=== PATIENT | female | born 1950 | race African-American/Black ===

== ENCOUNTER 2020-01-14 18:00 | Inpatient (IN) | payer MEDICARE ==
[~2020-01-14 18:00] MED LIST: Iopamidol-370 76% 500 ML 1 ML ONE; Succinylcholine 200 MG/10 ml SYRINGE FS ONE
[2020-01-14] MEDS ORDERED: Magnesium 2 GM/50 ML BAG (IN WATER) ONE (19:29)
[2020-01-14] MEDS ORDERED: Amiodarone 150 MG, Admixture Fee 1 EACH in Dextrose 5% in Water 100 ML IVPB SCH (20:00)
[2020-01-14] MEDS ORDERED: Amiodarone 450 MG, Admixture Fee 1 EACH in Dextrose 5% in Water 250 ML IVPB SCH (20:15)
[2020-01-14 20:44] LABS: Phosphorus 3.1 mg/dL (2.3-4.7)
--- NOTE | 2020-01-14 21:34 | CT ---
CT angiogram chest: 01/14/2020 COMPARISON: Prior chest CT study performed 5 hours prior HISTORY: Covid pneumonia TECHNIQUE: Axial CT imaging at 2.5 mm intervals through the chest with IV contrast using CT angiogram protocol. Coronal and oblique sagittal 3-D reformatted imaging obtained. FINDINGS: There is a nonspecific hypodense subcutaneous lesion within the subcutaneous fat posteriorl y measuring 2.8 cm at the axial level of the mid chest. No axillary, hilar, or mediastinal lymphadenopathy is seen. There is a mildly distended small sliding-type hiatal hernia. Imaged upper a bdomen demonstrates no acute findings. No pleural, pericardial, or mediastinal fluid. No evidence for pulmonary arterial embolism. The distal pulmonary arterial branches are not optimally assessed se condary to motion artifact, especially within the bilateral lower lobes. There is extensive groundglass opacity within bilateral upper lobes, the right middle lobe, and bilat eral lower lobes, consistent with the provided history of Covid pneumonia. The distribution of the bilateral parenchymal infiltrates is similar but the severity of the groundglass opacity/airspace dis ease has worsened. There may be slight interval worsening in the extent of disease within the left upper lobe. Review of the osseous structures demonstrates no worrisome lytic or blastic bone lesion. IMPRESSION: Severe extensive bilateral groundglass opacity/airspace disease, consistent with extensiv e bilateral Covid pneumonia. Parenchymal opacities appear to have worsened since the prior study. No convincing evidence for acute pulmonary arterial embolism.
[2020-01-14] MEDS ORDERED: HYDROcodone/Acetaminophen 5/325 mg Tablet PO PRN (21:47)
[2020-01-14] MEDS ORDERED: Acetaminophen 325 MG TAB PO PRN (21:47)
[2020-01-14] MEDS ORDERED: Ondansetron PF 4 MG/2 ML Vial IVP PRN (21:47)
[2020-01-14] MEDS ORDERED: Ondansetron ODT 4 MG TAB PO PRN (21:47)
[2020-01-14] MEDS ORDERED: Acetaminophen 650 MG Suppository PR PRN (21:47)
[2020-01-14] MEDS ORDERED: Calcium Carbonate 500 MG ChewTAB PO PRN (21:47)
--- NOTE | 2020-01-14 21:58 | PDOC.HHP ---
Hospitalist HPI - History of Present Illness sob History of Present Illness: Case of an 69y/o female with pmhx of hyperthryroidism s/p thyroidectomy and htn who comes transfer from [facility] due to covid 19. patient refers she was on her usual state of health until 1 week ago when she stared with cough and dyspnea. symptoms kept progressing until today which she decided to come to hospital for evaluation due to worsesning sob. Her just tested positive for coronavirus. she denies any fever chills diarrhea abd pain change in sense of smell or taste. at ed she was found to be hypoxic in the low 80s and during her evaluation patient started to have episodes of v tach on telemetry. patient denies any chest pain palpitations or diaphoresis. Hospitalist ROS - Review of Systems All other systems reviewed; all pertinent +/- noted in HPI/Subj Hospitalist History - Past Surgical History Past Surgical History: reports: no pertinent history - Family History Family History: reports: no pertinent history - Social History Smoking Status: Never smoker Alcohol: reports: None Drugs: reports: none - Exam General Appearance: ill appearing Eye: PERRL, anicteric sclera ENT: normocephalic atraumatic, no oropharyngeal lesions, moist mucosa Neck: supple, symmetric, no JVD Heart: no murmur, no gallops, no rubs Heart - other findings: tachycardic Respiratory: no wheezes, no rales, rhonchi, tachypneic Gastrointestinal: soft, non-tender, non-distended, normal bowel sounds Extremities: no cyanosis, no clubbing, no edema Skin: normal turgor, no lesions, no rashes Neurological: cranial nerve grossly intact, normal sensation to touch, no weakness Musculoskeletal: normal tone, normal strength, no muscle wasting Psychiatric: normal affect, normal behavior, A&O x 3 Hospitalist Results - Labs Lab results: Troponin I 0.010 ng/mL (< 0.028) 01/14/20 19:04 C-Reactive Protein 14.97 mg/dL (= or < 0.5) H 01/14/20 19:04 Hospitalist H&P A/P - Problem (1) Respiratory failure Code(s): J96.90 - RESPIRATORY FAILURE, UNSP, UNSP W HYPOXIA OR HYPERCAPNIA Status: Acute (2) Pneumonia due to COVID-19 virus Code(s): U07.1 - COVID-19; J12.89 - OTHER VIRAL PNEUMONIA Status: Acute (3) V tach Code(s): I47.2 - VENTRICULAR TACHYCARDIA Status: Acute (4) Respiratory failure with hypoxia Code(s): J96.91 - RESPIRATORY FAILURE, UNSPECIFIED WITH HYPOXIA Status: Acute (5) Hyperthyroidism Code(s): E05.90 - THYROTOXICOSIS, UNSP WITHOUT THYROTOXIC CRISIS OR STORM Status: Acute (6) HTN (hypertension) Code(s): I10 - ESSENTIAL (PRIMARY) HYPERTENSION Status: Acute (7) Morbidly obese Code(s): E66.01 - MORBID (SEVERE) OBESITY DUE TO EXCESS CALORIES Status: Acute - Plan Plan: Case of an 69y/o female with the stated pmhx who presents to hospital due to covid 19 pneumonia w repiratory failure, started having vtach runs at ED covid 19 pneumonia w hypoxia - cxr + chest ct consistent with covid 19 - started prophylactically on rocephin + azythromycin - decadron ivd - inflammation markers done, repeat q 48hrs if needed - id consulted - o2 supplementation - isolation protocol v tach runs - noted on telemetry at the ED - given amiodarone bolus + drip - cardiology consult - 2d echo htn - on amiodarone drip, holding home meds hyperthyroidism - s/p thryroidectomy - continue thryxine - tsh t3 t4
[2020-01-14] MEDS ORDERED: cefTRIAXone\\ROCEPHIN 1 GM in Sodium Chloride 0.9% 100 ML IVPB SCH (22:30)
[2020-01-14] MEDS ORDERED: Azithromycin 500 MG in Sodium Chloride 0.9% 250 ML 250 ML IVPB SCH (23:00)
[2020-01-14 23:37] VITALS: BMI 41.3
[2020-01-15] MEDS: Guaifenesin DM 100-10/5 ML UDCUP PO PRN ×3 (00:26→12:32)
[2020-01-15] MEDS ORDERED: Levothyroxine Sodium 125 MCG TAB PO SCH (06:00)
[2020-01-15 06:14] LABS: Band 5 % (5-11); Hemoglobin 12.3 g/dL (12.0-16.0); Lymphocytes 9 % (21-51); MDiff Complete? YES; Mean Corpuscular HGB CONC 32.3 g/dL (32.0-36.0); Mean Corpuscular Hemoglobin 31.8 pg (27.0-31.0); Mean Corpuscular Volume 98.4 fL (78.0-98.0); Mean Platelet Volume 7.8 fL (7.4-10.4); Monocytes 6 % (0-10); Neutrophil 80 % (42-75); Platelet Count 265 thou/uL (130-400); Red Blood Cell (RBC) Count 3.89 mill/uL (4.20-5.40); White Blood Cell (WBC) Count 11.3 thou/uL (4.8-10.8)
[2020-01-15 06:15] LABS: ALT (SGPT) 29 U/L (8-55); AST (SGOT) 36 U/L (5-34); Albumin 3.2 g/dL (3.4-4.8); Alkaline Phosphatase 72 U/L (40-110); Anion Gap 14 mmol/L (10-20); BUN (Urea Nitrogen) 24 mg/dL (9.8-20.1); Bilirubin, Total 0.2 mg/dL (0.2-1.2); Calc. Creatinine Clearance 113 mL/min (70-130); Calcium 8.1 mg/dL (7.8-10.44); Carbon Dioxide 23 mmol/L (23-31); Chloride 107 mmol/L (98-107); Globulin 3.8 g/dL (2.4-3.5); Glucose 127 mg/dL (80-115); Magnesium 2.5 mg/dL (1.6-2.6); Potassium 4.2 mmol/L (3.5-5.1); Sodium 140 mmol/L (136-145)
[2020-01-15] MEDS ORDERED: hydrALAZINE 20 MG/ML VIAL SLOW IVP SCH (06:30)
[2020-01-15 06:34] LABS: Thyroid Stimulating Hormone 0.1744 uIU/mL (0.35-4.94)
[2020-01-15 06:50] LABS: Free T4 (Free Thyroxine) 1.1 ng/dL (0.70-1.48)
[2020-01-15] MEDS: Dexamethasone 4 mg/ml Vial SLOW IVP SCH (08:29)
[2020-01-15] MEDS: Enoxaparin Sodium 40 MG/0.4 ML SYRINGE SC SCH (08:31)
--- NOTE | 2020-01-15 19:22 | CON ---
DATE OF CONSULTATION: HISTORY OF PRESENT ILLNESS: Dennis Lim is a 69-year-old female, who went to [facility] yesterday with cough and shortness of breath. Her had been tested positive for COVID. She denies any fever, chills, or diarrhea. She was hypoxic with O2 saturations in the 80s. She has 2 rhythm strips that are incorrectly diagnosis of ventricular tachycardia, these are basically artifact with normal QRS seen throughout the rhythm strip. She was placed on amiodarone and transferred here. She now states her breathing has improved. She denies any chest pain or previous cardiac problems. PAST MEDICAL HISTORY: Hypothyroidism and hypertension. ALLERGIES: CODEINE. MEDICATIONS: 1. Verapamil 180 daily. 2. Levothyroxine 125 daily. SOCIAL HISTORY: She does not smoke or drink. PHYSICAL EXAMINATION: VITAL SIGNS: Blood pressure 161/84 and pulse of 86, sinus rhythm on the monitor. Physical exam is deferred due to COVID-19. LABORATORY DATA: EKG reveals sinus tachycardia, otherwise normal. Hemoglobin 12.3, hematocrit 38.2, white count 11,300, and platelets 265,000. Sodium 140, potassium 4.2, chloride 107, carbon dioxide 23, BUN 24, and creatinine 0.86. Troponin I is normal x2. IMPRESSION: 1. COVID-19. 2. Hypertension. 3. Hypothyroidism. 4. Artifact on the monitor, this was not ventricular tachycardia. RECOMMENDATIONS: Amiodarone will be discontinued. I will follow her rhythm from a distance. Please call if further problems. Job ID: [id number]
--- NOTE | 2020-01-15 19:38 | PDOC.HOSPP ---
- Subjective Encounter Date: 01/15/20 Encounter Time: 19:36 Subjective: Patient up in bed states that she feels a little better. - Objective Vital Signs & Weight: Vital Signs (12 hours) Temp Pulse Resp BP Pulse Ox 01/15/20 16:02 98.8 F 86 25 H 160/88 H 96 01/15/20 11:32 98.8 F 86 25 H 161/84 H 93 L 01/15/20 11:20 94 L 01/15/20 10:50 161/84 H 01/15/20 07:54 93 L 01/15/20 07:46 99.0 F 86 24 H 186/105 H 93 L Weight Weight 248 lb 9.6 oz I&O: 01/14/20 01/15/20 01/16/20 06:59 06:59 06:59 Intake Total 326 Balance 326 Result Diagrams: 01/15/20 05:31 01/15/20 05:31 Hospitalist ROS - Review of Systems Cardiovascular: denies: chest pain, palpitations, orthopnea, paroxysmal noc. dyspnea, edema, light headedness, other Gastrointestinal: denies: nausea, vomiting, abdominal pain, diarrhea, constipation, melena, hematochezia, other Genitourinary: denies: dysuria, frequency, incontinence, hematuria, retention, other - Medication Medications: Active Medications Generic Name Dose Route Start Last Admin Trade Name Freq PRN Reason Stop Dose Admin Dexamethasone 6 mg 01/15/20 09:00 01/15/20 08:29 Dexamethasone 4 Mg/Ml Vial SLOW IVP 6 mg DAILY JIM Administration Enoxaparin Sodium 40 mg 01/15/20 09:00 01/15/20 08:31 Enoxaparin Sodium 40 Mg/0.4 Ml Syringe SC 40 mg 0900 JIM Administration Guaifenesin/Dextromethorphan 15 ml 01/14/20 21:47 01/15/20 12:32 Guaifenesin Dm 100-10/5 Ml Udcup PO 15 ml Q4H PRN Administration Cough Ceftriaxone Sodium 1 gm/ 100 mls @ 200 mls/hr 01/14/20 22:30 01/15/20 00:14 Sodium Chloride IVPB 100 mls Q24HR JIM Administration Azithromycin 500 mg/ Sodium 250 mls @ 250 mls/hr 01/14/20 23:00 01/15/20 00: 14 Chloride IVPB 250 mls Q24HR JIM Administration - Exam Neck: negative: supple, symmetric, no JVD, no thyromegaly, no lymphadenopathy, no carotid bruit, JVD Heart: negative: RRR, no murmur, no gallops, no rubs, normal peripheral pulses, irregular, diminshed peripheral pulses, murmur present, II/IV, III/IV Respiratory: negative: CTAB, no wheezes, no rales, no ronchi, normal chest expansion, no tachypnea, normal percussion, rales, rhonchi, tachypneic, wheezes Gastrointestinal: negative: soft, non-tender, non-distended, normal bowel sounds, no palpable masses, no hepatomegaly, no splenomegaly, no bruit, no guarding, no rigidity, tender to palpation, distended, diminished bowl sounds, voluntary guarding Hosp A/P (1) HTN (hypertension) Code(s): I10 - ESSENTIAL (PRIMARY) HYPERTENSION Status: Acute (2) Hyperthyroidism Code(s): E05.90 - THYROTOXICOSIS, UNSP WITHOUT THYROTOXIC CRISIS OR STORM Status: Acute (3) Morbidly obese Code(s): E66.01 - MORBID (SEVERE) OBESITY DUE TO EXCESS CALORIES Status: Acute (4) Pneumonia due to COVID-19 virus Code(s): U07.1 - COVID-19; J12.89 - OTHER VIRAL PNEUMONIA Status: Acute (5) Respiratory failure with hypoxia Code(s): J96.91 - RESPIRATORY FAILURE, UNSPECIFIED WITH HYPOXIA Status: Acute (6) V tach Code(s): I47.2 - VENTRICULAR TACHYCARDIA Status: Acute - Plan Patient started on remdesivir today. Infectious disease consulted. We will continue to monitor patient. Pending cardiology consultation. We will continue IV steroids. Patient on DVT prophylaxis.
[2020-01-16] MEDS ORDERED: hydrALAZINE 20 MG/ML VIAL SLOW IVP SCH (01:30)
--- NOTE | 2020-01-16 03:12 | CON ---
DATE OF CONSULTATION: 01/15/2020 REASON FOR CONSULTATION: COVID infection. HISTORY OF PRESENT ILLNESS: A 69-year-old, history of hyperthyroidism, managed with thyroidectomy who about a week before developed cough and dyspnea which progressed. Her was sick with coronavirus as well. No headaches. No visual symptoms, sore throat, odynophagia, or dysphagia. No vomiting. Some anosmia and anorexia. No fever. No abdominal pain or diarrhea. On arrival, her O2 saturations were 80%. She is tachycardic and had chest pain. Initial findings included BP 170/100, pulse 90, respirations 22, temperature 98.7, and O2 saturation 99 on 3 L. The exam showed tachypnea, she was oriented, diminished breath sounds bilaterally with dry cough. Initial findings included a white cell count of 11.3, hemoglobin 12, platelets 265 with 80% neutrophils. Sodium 140, creatinine 0.6. Ferritin 1900, CRP 14, albumin 3.2. CT chest angio with extensive bilateral ground-glass opacity, worsened since prior study. Patient has been given azithromycin, ceftriaxone, and Decadron. She is now on high-flow nasal cannula O2 supplementation. The flow rate is indicated at 15, but that must not be correct, I think it is probably 50. She appears a little bit apprehensive. Denies any headaches. Moderate shortness of breath. No back pain. No genitourinary symptoms. No diarrhea. No abdominal pain. No neurological symptoms. MEDICAL HISTORY: Hyperthyroidism, thyroidectomy. FAMILY HISTORY: Not pertinent. PERTINENT SOCIAL HISTORY: Never smoker. CURRENT MEDICATIONS: 1. Azithromycin. 2. Ceftriaxone. 3. Decadron. 4. Lovenox. 5. Levothyroxine. 6. Ondansetron. 7. Pantoprazole. 8. Remdesivir had been started. PHYSICAL EXAMINATION: VITAL SIGNS: T-max 98 to 99, blood pressure 150/80, heart rate 89, respiratory rate 16 to 24, and O2 saturation 97. SKIN: Normal. Peripheral IV access. She is voiding in the bedside commode. LYMPHATICS: No lymphadenopathy. HEENT: Ocular movements conjugate. Oral cavity normal. LUNGS: Basilar crackles, right and left side. No wheezing. CARDIAC: S1, S2. Regular rate. No S3 or S4. ABDOMEN: Soft. Not distended or tender. No ascites. No bladder distention. EXTREMITIES: No edema. No joint inflammatory activity. Moves all extremities equally. LABORATORIES: Have been reviewed. Followup creatinine 0.86. Ferritin 1900. CRP 14.7. ASSESSMENT: 1. History of hyperthyroidism status post thyroidectomy. 2. COVID. 3. She also has obesity obviously on physical exam. 4. She has severe COVID pneumonia, on high-flow nasal cannula O2, so she is at seven days of illness, I will go ahead and add remdesivir to her regimen. Continue Decadron. DC Rocephin, azithromycin. Lovenox prophylaxis. Monitor inflammatory markers daily. Job ID: [id number]
[2020-01-16] MEDS: Levothyroxine Sodium 125 MCG TAB PO SCH (05:09)
[2020-01-16 06:06] LABS: ALT (SGPT) 33 U/L (8-55); AST (SGOT) 38 U/L (5-34); Albumin 3.3 g/dL (3.4-4.8); Alkaline Phosphatase 82 U/L (40-110); Anion Gap 14 mmol/L (10-20); BUN (Urea Nitrogen) 30 mg/dL (9.8-20.1); Bilirubin, Direct 0.2 mg/dL (0.1-0.3); Bilirubin, Total 0.3 mg/dL (0.2-1.2); CRP (Inflammatory) 7.67 mg/dL (= or < 0.5); Calc. Creatinine Clearance 110 mL/min (70-130); Calcium 8.3 mg/dL (7.8-10.44); Carbon Dioxide 25 mmol/L (23-31); Chloride 106 mmol/L (98-107); Glucose 101 mg/dL (80-115); Potassium 4.1 mmol/L (3.5-5.1); Protein, Total 7.3 g/dL (6.0-8.3); Sodium 141 mmol/L (136-145)
[2020-01-16] MEDS: Enoxaparin Sodium 40 MG/0.4 ML SYRINGE SC SCH (08:46)
[2020-01-16] MEDS: Dexamethasone 4 mg/ml Vial SLOW IVP SCH (08:47)
[2020-01-16] MEDS: Guaifenesin DM 100-10/5 ML UDCUP PO PRN (11:49)
--- NOTE | 2020-01-16 14:20 | PDOC.HOSPP ---
- Subjective Encounter Date: 01/16/20 Encounter Time: 07:30 Subjective: Patient seen for follow-up regarding acute hypoxic respiratory failure. Reports shortness of breath with exertion. - Objective Vital Signs & Weight: Vital Signs (12 hours) Temp Pulse Resp BP Pulse Ox 01/16/20 11:09 94 L 01/16/20 11:00 82 L 01/16/20 08:18 86 L 01/16/20 07:59 98.9 F 93 25 H 172/91 H 93 L 01/16/20 04:00 99.0 F 100 18 158/89 H 97 01/16/20 03:23 92 L Weight Weight 248 lb 9.6 oz I&O: 01/15/20 01/16/20 01/17/20 06:59 06:59 06:59 Intake Total 1056 Balance 1056 Result Diagrams: 01/15/20 05:31 01/16/20 05:07 Additional Labs: I reviewed patient's labs and MAR EKG Reviewed by me: Yes (Telemetry shows normal sinus rhythm) Hospitalist ROS - Review of Systems Respiratory: reports: cough, dry, SOB with excertion. denies: shortness of breath, hemoptysis, pleuritic pain, sputum, wheezing Cardiovascular: denies: chest pain, palpitations, orthopnea, paroxysmal noc. dyspnea, edema, light headedness - Medication Medications: Active Medications Generic Name Dose Route Start Last Admin Trade Name Freq PRN Reason Stop Dose Admin Dexamethasone 6 mg 01/15/20 09:00 01/16/20 08:47 Dexamethasone 4 Mg/Ml Vial SLOW IVP 6 mg DAILY JIM Administration Enoxaparin Sodium 40 mg 01/15/20 09:00 01/16/20 08:46 Enoxaparin Sodium 40 Mg/0.4 Ml Syringe SC 40 mg 0900 JIM Administration Guaifenesin/Dextromethorphan 15 ml 01/14/20 21:47 01/16/20 11:49 Guaifenesin Dm 100-10/5 Ml Udcup PO 15 ml Q4H PRN Administration Cough Levothyroxine Sodium 125 mcg 01/16/20 06:00 01/16/20 05:09 Levothyroxine Sodium 125 Mcg Tab PO 125 mcg 0600 JIM Administration Pantoprazole Sodium 40 mg 01/16/20 09:00 01/16/20 08:48 Pantoprazole 40 Mg Tab PO 40 mg DAILY JIM Administration Verapamil HCl 180 mg 01/16/20 09:00 01/16/20 08:48 Verapamil Er 180 Mg Tab PO 180 mg DAILY JIM Administration - Exam General - other findings: Morbid obesity Eye: anicteric sclera ENT: no oropharyngeal lesions Neck: supple Heart: RRR Respiratory: CTAB Gastrointestinal: soft Skin: no rashes Psychiatric: normal affect, normal behavior Hosp A/P - Plan -Assessment (1) Respiratory failure with hypoxia Code(s): J96.91 - RESPIRATORY FAILURE, UNSPECIFIED WITH HYPOXIA Status: Acute (2) Pneumonia due to COVID-19 virus Code(s): U07.1 - COVID-19; J12.89 - OTHER VIRAL PNEUMONIA Status: Acute (3) HTN (hypertension) Code(s): I10 - ESSENTIAL (PRIMARY) HYPERTENSION Status: Chronic (4) hypothyroidism Status: Chronic (5) Morbidly obese Code(s): E66.01 - MORBID (SEVERE) OBESITY DUE TO EXCESS CALORIES Status: Chronic (6) V tach Code(s): I47.2 - VENTRICULAR TACHYCARDIA Status: Ruled out - Plan Patient continues to be on high flow oxygen. She has been started on remdesivir, will continue. Continue dexamethasone. Trend inflammatory markers. Start vitamin C and zinc. Continue Synthroid.
[2020-01-16] MEDS ORDERED: Ascorbic Acid 500 mg Chewable Tablet PO SCH (14:45)
[2020-01-16] MEDS ORDERED: Zinc Sulfate 220 MG CAP PO SCH (15:00)
[2020-01-17] MEDS ORDERED: hydrALAZINE 20 MG/ML VIAL SLOW IVP SCH (03:00)
[2020-01-17] MEDS: Levothyroxine Sodium 125 MCG TAB PO SCH (05:05)
[2020-01-17 05:16] LABS: #Monocytes 1.1 thou/uL (0.11-0.59); #Neutrophils 9.7 thou/uL (1.40-6.50); %Basophils 0.4 % (0.0-1.0); %Eosinophils 0.2 % (0.0-10.0); %Lymphocytes 8.6 % (21.0-51.0); %Monocytes 9.2 % (0.0-10.0); %Neutrophils 81.6 % (42.0-75.0); Hemoglobin 13.1 g/dL (12.0-16.0); Mean Corpuscular HGB CONC 32.4 g/dL (32.0-36.0); Mean Corpuscular Hemoglobin 31.7 pg (27.0-31.0); Mean Corpuscular Volume 98.1 fL (78.0-98.0); Mean Platelet Volume 8.1 fL (7.4-10.4); Platelet Count 244 thou/uL (130-400); RBC Distribution Width 13.2 % (11.5-14.5); Red Blood Cell (RBC) Count 4.13 mill/uL (4.20-5.40); White Blood Cell (WBC) Count 11.9 thou/uL (4.8-10.8)
[2020-01-17 05:45] LABS: ALT (SGPT) 39 U/L (8-55); AST (SGOT) 39 U/L (5-34); Albumin 3.2 g/dL (3.4-4.8); Alkaline Phosphatase 90 U/L (40-110); Anion Gap 16 mmol/L (10-20); BUN (Urea Nitrogen) 33 mg/dL (9.8-20.1); Bilirubin, Direct 0.2 mg/dL (0.1-0.3); Bilirubin, Total 0.4 mg/dL (0.2-1.2); CRP (Inflammatory) 5.23 mg/dL (= or < 0.5); Calc. Creatinine Clearance 130 mL/min (70-130); Calcium 8.3 mg/dL (7.8-10.44); Carbon Dioxide 20 mmol/L (23-31); Chloride 108 mmol/L (98-107); Glucose 105 mg/dL (80-115); Potassium 4.1 mmol/L (3.5-5.1); Sodium 140 mmol/L (136-145)
[2020-01-17] MEDS: Zinc Sulfate 220 MG CAP PO SCH (09:39)
[2020-01-17] MEDS: Ascorbic Acid 500 mg Chewable Tablet PO SCH (09:39)
[2020-01-17] MEDS: Enoxaparin Sodium 40 MG/0.4 ML SYRINGE SC SCH (09:39)
[2020-01-17] MEDS: Dexamethasone 4 mg/ml Vial SLOW IVP SCH (09:40)
[2020-01-17] MEDS ORDERED: Amlodipine 5 MG TAB PO SCH (11:45)
--- NOTE | 2020-01-17 16:30 | PDOC.HOSPP ---
- Subjective Encounter Date: 01/17/20 Encounter Time: 15:30 Subjective: Patient seen for follow-up regarding acute hypoxic respiratory failure. Shortness of breath after she had showered. - Objective Vital Signs & Weight: Vital Signs (12 hours) Temp Pulse Resp BP Pulse Ox 01/17/20 15:34 98.8 F 98 22 H 158/81 H 93 L 01/17/20 11:23 97.9 F 100 22 H 159/87 H 95 01/17/20 10:35 93 L 01/17/20 07:47 99.1 F 100 22 H 182/89 H 93 L Weight Weight 248 lb 9.6 oz I&O: 01/16/20 01/17/20 01/18/20 06:59 06:59 06:59 Intake Total 1056 832 Balance 1056 832 Result Diagrams: 01/17/20 04:41 01/17/20 04:41 Additional Labs: I reviewed patient's labs and MAR EKG Reviewed by me: Yes (Normal sinus rhythm on telemetry) Hospitalist ROS - Review of Systems Respiratory: reports: cough, shortness of breath, SOB with excertion Cardiovascular: denies: chest pain, palpitations, orthopnea, paroxysmal noc. dyspnea, edema, light headedness Gastrointestinal: denies: nausea, vomiting, abdominal pain, diarrhea, constipation, melena, hematochezia - Medication Medications: Active Medications Generic Name Dose Route Start Last Admin Trade Name Freq PRN Reason Stop Dose Admin Ascorbic Acid 1,000 mg 01/17/20 09:00 01/17/20 09:39 Ascorbic Acid 500 Mg Chewable Tablet PO 1,000 mg DAILY JIM Administration Dexamethasone 6 mg 01/15/20 09:00 01/17/20 09:40 Dexamethasone 4 Mg/Ml Vial SLOW IVP 6 mg DAILY JIM Administration Enoxaparin Sodium 40 mg 01/15/20 09:00 01/17/20 09:39 Enoxaparin Sodium 40 Mg/0.4 Ml Syringe SC 40 mg 0900 JIM Administration Guaifenesin/Dextromethorphan 15 ml 01/14/20 21:47 01/16/20 11:49 Guaifenesin Dm 100-10/5 Ml Udcup PO 15 ml Q4H PRN Administration Cough Remdesivir 100 mg/ Sodium 250 mls @ 250 mls/hr 01/16/20 21:00 01/16/20 20:10 Chloride IV 01/19/20 21:59 250 mls Q24HR JIM Administration Levothyroxine Sodium 125 mcg 01/16/20 06:00 01/17/20 05:05 Levothyroxine Sodium 125 Mcg Tab PO 125 mcg 0600 JIM Administration Pantoprazole Sodium 40 mg 01/16/20 09:00 01/17/20 09:39 Pantoprazole 40 Mg Tab PO 40 mg DAILY JIM Administration Verapamil HCl 180 mg 01/16/20 09:00 01/17/20 09:38 Verapamil Er 180 Mg Tab PO 180 mg DAILY JIM Administration Zinc Sulfate 220 mg 01/17/20 09:00 01/17/20 09:39 Zinc Sulfate 220 Mg Cap PO 220 mg DAILY JIM Administration - Exam General Appearance: awake alert Eye: anicteric sclera ENT: moist mucosa Neck: supple Heart: RRR Respiratory: CTAB Gastrointestinal: soft, non-tender Skin: no rashes Psychiatric: normal affect, normal behavior Hosp A/P - Plan -Assessment (1) Respiratory failure with hypoxia Code(s): J96.91 - RESPIRATORY FAILURE, UNSPECIFIED WITH HYPOXIA Status: Acute (2) Pneumonia due to COVID-19 virus Code(s): U07.1 - COVID-19; J12.89 - OTHER VIRAL PNEUMONIA Status: Acute (3) HTN (hypertension) Code(s): I10 - ESSENTIAL (PRIMARY) HYPERTENSION Status: Chronic (4) hypothyroidism Status: Chronic (5) Morbidly obese Code(s): E66.01 - MORBID (SEVERE) OBESITY DUE TO EXCESS CALORIES Status: Chronic (6) V tach Code(s): I47.2 - VENTRICULAR TACHYCARDIA Status: Ruled out - Plan Patient continues to be on high flow oxygen. Continue remdesivir and dexamethasone. Trend inflammatory markers. continue vitamin C and zinc. Continue Synthroid. Patient was accepted for admission to [facility] in [place] but but she subsequently decided not to go. Patient son updated over telephone.
[2020-01-18] MEDS ORDERED: hydrALAZINE 20 MG/ML VIAL SLOW IVP SCH (01:30)
[2020-01-18] MEDS: Levothyroxine Sodium 125 MCG TAB PO SCH (05:14)
[2020-01-18 05:35] LABS: #Monocytes 0.9 thou/uL (0.11-0.59); #Neutrophils 10.4 thou/uL (1.40-6.50); %Basophils 0.1 % (0.0-1.0); %Lymphocytes 8.4 % (21.0-51.0); %Monocytes 7.5 % (0.0-10.0); Hemoglobin 12.7 g/dL (12.0-16.0); Mean Corpuscular HGB CONC 33.3 g/dL (32.0-36.0); Mean Corpuscular Hemoglobin 32.3 pg (27.0-31.0); Mean Corpuscular Volume 97.1 fL (78.0-98.0); Platelet Count 187 thou/uL (130-400); RBC Distribution Width 13.3 % (11.5-14.5); Red Blood Cell (RBC) Count 3.94 mill/uL (4.20-5.40); White Blood Cell (WBC) Count 12.3 thou/uL (4.8-10.8)
[2020-01-18 07:20] LABS: Anion Gap 13 mmol/L (10-20); BUN (Urea Nitrogen) 25 mg/dL (9.8-20.1); Calc. Creatinine Clearance 135 mL/min (70-130); Calcium 8.1 mg/dL (7.8-10.44); Carbon Dioxide 25 mmol/L (23-31); Chloride 108 mmol/L (98-107); Glucose 105 mg/dL (80-115); Magnesium 2.3 mg/dL (1.6-2.6); Potassium 4.1 mmol/L (3.5-5.1); Sodium 142 mmol/L (136-145)
[2020-01-18 08:39] LABS: ALT (SGPT) 51 U/L (8-55); AST (SGOT) 37 U/L (5-34); Albumin 3.1 g/dL (3.4-4.8); Alkaline Phosphatase 94 U/L (40-110); Bilirubin, Direct 0.2 mg/dL (0.1-0.3); Bilirubin, Total 0.5 mg/dL (0.2-1.2); CRP (Inflammatory) 7.27 mg/dL (= or < 0.5); Protein, Total 6.6 g/dL (6.0-8.3)
[2020-01-18] MEDS: Amlodipine 5 MG TAB PO SCH (09:06)
[2020-01-18] MEDS: Ascorbic Acid 500 mg Chewable Tablet PO SCH (09:07)
[2020-01-18] MEDS: Dexamethasone 4 mg/ml Vial SLOW IVP SCH (09:07)
[2020-01-18] MEDS: Enoxaparin Sodium 40 MG/0.4 ML SYRINGE SC SCH (09:07)
[2020-01-18] MEDS: Zinc Sulfate 220 MG CAP PO SCH (09:07)
--- NOTE | 2020-01-18 15:52 | PDOC.HOSPP ---
- Subjective Encounter Date: 01/18/20 Encounter Time: 07:30 Subjective: Patient seen for follow-up regarding COVID-19 pneumonia. She reports feeling better today. She refused convalescent plasma yesterday. She reports that her breathing is fine as long as she is lying still. - Objective Vital Signs & Weight: Vital Signs (12 hours) Temp Pulse Resp BP Pulse Ox 01/18/20 12:00 98.8 F 100 22 H 143/85 H 93 L 01/18/20 09:07 94 L 01/18/20 07:53 97.2 F L 95 22 H 169/87 H 94 L 01/18/20 04:30 98.2 F 93 14 94 L Weight Weight 248 lb 9.6 oz I&O: 01/17/20 01/18/20 01/19/20 06:59 06:59 06:59 Intake Total 832 536 Output Total 649 Balance 832 -113 Result Diagrams: 01/18/20 05:11 01/18/20 06:49 Additional Labs: Labs and MAR reviewed by me EKG Reviewed by me: Yes (Telemetry shows normal sinus rhythm) Hospitalist ROS - Medication Medications: Active Medications Generic Name Dose Route Start Last Admin Trade Name Freq PRN Reason Stop Dose Admin Amlodipine Besylate 5 mg 01/18/20 09:00 01/18/20 09:06 Amlodipine 5 Mg Tab PO 5 mg DAILY JIM Administration Ascorbic Acid 1,000 mg 01/17/20 09:00 01/18/20 09:07 Ascorbic Acid 500 Mg Chewable Tablet PO 1,000 mg DAILY JIM Administration Dexamethasone 6 mg 01/15/20 09:00 01/18/20 09:07 Dexamethasone 4 Mg/Ml Vial SLOW IVP 6 mg DAILY JIM Administration Enoxaparin Sodium 40 mg 01/15/20 09:00 01/18/20 09:07 Enoxaparin Sodium 40 Mg/0.4 Ml Syringe SC 40 mg 0900 JIM Administration Guaifenesin/Dextromethorphan 15 ml 01/14/20 21:47 01/16/20 11:49 Guaifenesin Dm 100-10/5 Ml Udcup PO 15 ml Q4H PRN Administration Cough Remdesivir 100 mg/ Sodium 250 mls @ 250 mls/hr 01/16/20 21:00 01/17/20 20:50 Chloride IV 01/19/20 21:59 250 mls Q24HR JIM Administration Levothyroxine Sodium 125 mcg 01/16/20 06:00 01/18/20 05:14 Levothyroxine Sodium 125 Mcg Tab PO 125 mcg 0600 JIM Administration Pantoprazole Sodium 40 mg 01/16/20 09:00 01/18/20 09:06 Pantoprazole 40 Mg Tab PO 40 mg DAILY JIM Administration Verapamil HCl 180 mg 01/16/20 09:00 01/18/20 09:06 Verapamil Er 180 Mg Tab PO 180 mg DAILY JIM Administration Zinc Sulfate 220 mg 01/17/20 09:00 01/18/20 09:07 Zinc Sulfate 220 Mg Cap PO 220 mg DAILY JIM Administration Hosp A/P - Plan -Assessment (1) Respiratory failure with hypoxia Code(s): J96.91 - RESPIRATORY FAILURE, UNSPECIFIED WITH HYPOXIA Status: Acute (2) Pneumonia due to COVID-19 virus Code(s): U07.1 - COVID-19; J12.89 - OTHER VIRAL PNEUMONIA Status: Acute (3) HTN (hypertension) Code(s): I10 - ESSENTIAL (PRIMARY) HYPERTENSION Status: Chronic (4) hypothyroidism Status: Chronic (5) Morbidly obese Code(s): E66.01 - MORBID (SEVERE) OBESITY DUE TO EXCESS CALORIES Status: Chronic (6) V tach Code(s): I47.2 - VENTRICULAR TACHYCARDIA Status: Ruled out - Plan Continue dexamethasone. Continue remdesivir. Continue vitamin C. Continue zinc. DVT prophylaxis with low molecular weight heparin.
[2020-01-19] MEDS: Guaifenesin DM 100-10/5 ML UDCUP PO PRN (01:53)
[2020-01-19] MEDS: Levothyroxine Sodium 125 MCG TAB PO SCH (05:05)
[2020-01-19 05:55] LABS: #Neutrophils 14.1 thou/uL (1.40-6.50); %Eosinophils 0.1 % (0.0-10.0); %Lymphocytes 6.4 % (21.0-51.0); %Monocytes 6.1 % (0.0-10.0); %Neutrophils 87.4 % (42.0-75.0); Hemoglobin 12.7 g/dL (12.0-16.0); Mean Corpuscular Hemoglobin 31.8 pg (27.0-31.0); Mean Corpuscular Volume 99.4 fL (78.0-98.0); Mean Platelet Volume 8.3 fL (7.4-10.4); Platelet Count 180 thou/uL (130-400); RBC Distribution Width 13.4 % (11.5-14.5); Red Blood Cell (RBC) Count 3.97 mill/uL (4.20-5.40); White Blood Cell (WBC) Count 16.1 thou/uL (4.8-10.8)
[2020-01-19 06:19] LABS: ALT (SGPT) 71 U/L (8-55); AST (SGOT) 41 U/L (5-34); Albumin 2.9 g/dL (3.4-4.8); Alkaline Phosphatase 98 U/L (40-110); Anion Gap 14 mmol/L (10-20); BUN (Urea Nitrogen) 26 mg/dL (9.8-20.1); Bilirubin, Direct 0.2 mg/dL (0.1-0.3); Bilirubin, Total 0.4 mg/dL (0.2-1.2); CRP (Inflammatory) 6.25 mg/dL (= or < 0.5); Calc. Creatinine Clearance 145 mL/min (70-130); Carbon Dioxide 22 mmol/L (23-31); Chloride 108 mmol/L (98-107); Glucose 112 mg/dL (80-115); Potassium 3.9 mmol/L (3.5-5.1); Protein, Total 6.3 g/dL (6.0-8.3); Sodium 140 mmol/L (136-145)
[2020-01-19] MEDS: Ascorbic Acid 500 mg Chewable Tablet PO SCH (09:22)
[2020-01-19] MEDS: Zinc Sulfate 220 MG CAP PO SCH (09:22)
[2020-01-19] MEDS: Amlodipine 5 MG TAB PO SCH (09:22)
[2020-01-19] MEDS: Dexamethasone 4 mg/ml Vial SLOW IVP SCH (09:23)
[2020-01-19] MEDS: Enoxaparin Sodium 40 MG/0.4 ML SYRINGE SC SCH (09:23)
--- NOTE | 2020-01-19 15:39 | PDOC.HOSPP ---
- Subjective Encounter Date: 01/19/20 Encounter Time: 07:30 Subjective: Patient seen for follow-up for COVID-19 pneumonia. States that she feels the same as yesterday. - Objective Vital Signs & Weight: Vital Signs (12 hours) Temp Pulse Resp BP Pulse Ox 01/19/20 15:27 98.8 F 101 H 25 H 133/77 97 01/19/20 12:00 98.7 F 99 18 149/80 H 95 01/19/20 09:22 95 01/19/20 08:00 98.5 F 101 H 24 H 158/87 H 92 L 01/19/20 06:50 92 L 01/19/20 04:35 98.3 F 95 22 H 166/86 H 95 Weight Weight 248 lb 9.6 oz I&O: 01/18/20 01/19/20 01/20/20 06:59 06:59 06:59 Intake Total 536 796 Output Total 649 400 Balance -113 396 Result Diagrams: 01/19/20 05:35 01/19/20 05:35 Additional Labs: I reviewed patient's labs and MAR Hospitalist ROS - Review of Systems Constitutional: denies: fever, chills, sweats, weakness Respiratory: reports: SOB with excertion. denies: cough, dry, shortness of breath, hemoptysis, pleuritic pain, sputum, wheezing Skin: denies: rash, lesions, caterina - Medication Medications: Active Medications Generic Name Dose Route Start Last Admin Trade Name Freq PRN Reason Stop Dose Admin Amlodipine Besylate 5 mg 01/18/20 09:00 01/19/20 09:22 Amlodipine 5 Mg Tab PO 5 mg DAILY JIM Administration Ascorbic Acid 1,000 mg 01/17/20 09:00 01/19/20 09:22 Ascorbic Acid 500 Mg Chewable Tablet PO 1,000 mg DAILY JIM Administration Dexamethasone 6 mg 01/15/20 09:00 01/19/20 09:23 Dexamethasone 4 Mg/Ml Vial SLOW IVP 6 mg DAILY JIM Administration Enoxaparin Sodium 40 mg 01/15/20 09:00 01/19/20 09:23 Enoxaparin Sodium 40 Mg/0.4 Ml Syringe SC 40 mg 09 JIM Administration Guaifenesin/Dextromethorphan 15 ml 01/14/20 21:47 01/19/20 01:53 Guaifenesin Dm 100-10/5 Ml Udcup PO 15 ml Q4H PRN Administration Cough Remdesivir 100 mg/ Sodium 250 mls @ 250 mls/hr 01/16/20 21:00 01/18/20 21:03 Chloride IV 01/19/20 21:59 250 mls Q24HR JIM Administration Levothyroxine Sodium 125 mcg 01/16/20 06:00 01/19/20 05:05 Levothyroxine Sodium 125 Mcg Tab PO 125 mcg 0600 JIM Administration Pantoprazole Sodium 40 mg 01/16/20 09:00 01/19/20 09:23 Pantoprazole 40 Mg Tab PO 40 mg DAILY JIM Administration Verapamil HCl 180 mg 01/16/20 09:00 01/19/20 09:25 Verapamil Er 180 Mg Tab PO 180 mg DAILY JIM Administration Zinc Sulfate 220 mg 01/17/20 09:00 01/19/20 09:22 Zinc Sulfate 220 Mg Cap PO 220 mg DAILY JIM Administration - Exam General - other findings: Morbid obesity Eye: anicteric sclera ENT: moist mucosa Heart: RRR Respiratory: CTAB Gastrointestinal: soft, non-tender Skin: no rashes Psychiatric: normal affect, normal behavior Hosp A/P - Plan -Assessment (1) Respiratory failure with hypoxia Code(s): J96.91 - RESPIRATORY FAILURE, UNSPECIFIED WITH HYPOXIA Status: Acute (2) Pneumonia due to COVID-19 virus Code(s): U07.1 - COVID-19; J12.89 - OTHER VIRAL PNEUMONIA Status: Acute (3) HTN (hypertension) Code(s): I10 - ESSENTIAL (PRIMARY) HYPERTENSION Status: Chronic (4) hypothyroidism Status: Chronic (5) Morbidly obese Code(s): E66.01 - MORBID (SEVERE) OBESITY DUE TO EXCESS CALORIES Status: Chronic (6) V tach Code(s): I47.2 - VENTRICULAR TACHYCARDIA Status: Ruled out - Plan Continue dexamethasone. Patient's last dose of remdesivir yesterday. Patient is on vitamin C. Patient is on zinc. Hypertension is controlled. DVT prophylaxis with low molecular weight heparin.
[2020-01-20] MEDS: Guaifenesin DM 100-10/5 ML UDCUP PO PRN (00:27)
[2020-01-20 05:07] LABS: Anion Gap 14 mmol/L (10-20); BUN (Urea Nitrogen) 29 mg/dL (9.8-20.1); Calc. Creatinine Clearance 125 mL/min (70-130); Carbon Dioxide 23 mmol/L (23-31); Chloride 108 mmol/L (98-107); Glucose 111 mg/dL (80-115); Potassium 4.2 mmol/L (3.5-5.1); Sodium 141 mmol/L (136-145)
[2020-01-20 05:14] LABS: ALT (SGPT) 81 U/L (8-55); AST (SGOT) 38 U/L (5-34); Alkaline Phosphatase 97 U/L (40-110); Bilirubin, Direct 0.2 mg/dL (0.1-0.3); Bilirubin, Total 0.4 mg/dL (0.2-1.2); Magnesium 2.2 mg/dL (1.6-2.6); Protein, Total 6.5 g/dL (6.0-8.3)
[2020-01-20] MEDS: Levothyroxine Sodium 125 MCG TAB PO SCH (05:18)
[2020-01-20] MEDS: Ascorbic Acid 500 mg Chewable Tablet PO SCH (09:42)
[2020-01-20] MEDS: Amlodipine 10 MG TAB PO SCH (09:42)
[2020-01-20] MEDS: Dexamethasone 4 mg/ml Vial SLOW IVP SCH (09:43)
[2020-01-20] MEDS: Enoxaparin Sodium 40 MG/0.4 ML SYRINGE SC SCH (09:43)
[2020-01-20] MEDS: Zinc Sulfate 220 MG CAP PO SCH (09:43)
--- NOTE | 2020-01-20 15:30 | PDOC.HOSPP ---
- Subjective Encounter Date: 01/20/20 Encounter Time: 07:30 Subjective: Patient seen for follow-up regarding hypoxic respiratory failure. She reports feeling okay. - Objective Vital Signs & Weight: Vital Signs (12 hours) Temp Pulse Resp BP BP Pulse Ox 01/20/20 11:29 98.6 F 112 H 23 H 150/71 H 93 L 01/20/20 09:42 95 177/94 H 01/20/20 07:50 98.8 F 95 22 H 177/94 H 100 01/20/20 04:30 94 150/93 H 01/20/20 04:00 98.5 F 90 16 180/105 H 97 Weight Weight 248 lb 9.6 oz I&O: 01/19/20 01/20/20 01/21/20 06:59 06:59 06:59 Intake Total 796 400 Output Total 400 650 Balance 396 -250 Result Diagrams: 01/19/20 05:35 01/20/20 04:30 Additional Labs: Labs and MAR reviewed by me EKG Reviewed by me: Yes (Telemetry shows normal sinus rhythm) Hospitalist ROS - Review of Systems Constitutional: denies: fever, chills, sweats, weakness, malaise Respiratory: reports: SOB with excertion. denies: cough, shortness of breath, pleuritic pain, sputum - Medication Medications: Active Medications Generic Name Dose Route Start Last Admin Trade Name Freq PRN Reason Stop Dose Admin Amlodipine Besylate 10 mg 01/20/20 09:00 01/20/20 09:42 Amlodipine 10 Mg Tab PO 10 mg DAILY JIM Administration Ascorbic Acid 1,000 mg 01/17/20 09:00 01/20/20 09:42 Ascorbic Acid 500 Mg Chewable Tablet PO 1,000 mg DAILY JIM Administration Dexamethasone 6 mg 01/15/20 09:00 01/20/20 09:43 Dexamethasone 4 Mg/Ml Vial SLOW IVP 6 mg DAILY JIM Administration Enoxaparin Sodium 40 mg 01/15/20 09:00 01/20/20 09:43 Enoxaparin Sodium 40 Mg/0.4 Ml Syringe SC 40 mg 0900 JIM Administration Guaifenesin/Dextromethorphan 15 ml 01/14/20 21:47 01/20/20 00:27 Guaifenesin Dm 100-10/5 Ml Udcup PO 15 ml Q4H PRN Administration Cough Levothyroxine Sodium 125 mcg 01/16/20 06:00 01/20/20 05:18 Levothyroxine Sodium 125 Mcg Tab PO 125 mcg 0600 JIM Administration Pantoprazole Sodium 40 mg 01/16/20 09:00 01/20/20 09:42 Pantoprazole 40 Mg Tab PO 40 mg DAILY JIM Administration Verapamil HCl 180 mg 01/16/20 09:00 01/20/20 09:42 Verapamil Er 180 Mg Tab PO 180 mg DAILY JIM Administration Zinc Sulfate 220 mg 01/17/20 09:00 01/20/20 09:43 Zinc Sulfate 220 Mg Cap PO 220 mg DAILY JIM Administration - Exam General - other findings: Morbid obesity ENT: normocephalic atraumatic Heart: RRR Respiratory: CTAB Gastrointestinal: soft Extremities: no clubbing Skin: no rashes Psychiatric: normal affect, normal behavior Hosp A/P - Plan -Assessment (1) Respiratory failure with hypoxia Code(s): J96.91 - RESPIRATORY FAILURE, UNSPECIFIED WITH HYPOXIA Status: Acute (2) Pneumonia due to COVID-19 virus Code(s): U07.1 - COVID-19; J12.89 - OTHER VIRAL PNEUMONIA Status: Acute (3) HTN (hypertension) Code(s): I10 - ESSENTIAL (PRIMARY) HYPERTENSION Status: Chronic (4) hypothyroidism Status: Chronic (5) Morbidly obese Code(s): E66.01 - MORBID (SEVERE) OBESITY DUE TO EXCESS CALORIES Status: Chronic (6) V tach Code(s): I47.2 - VENTRICULAR TACHYCARDIA Status: Ruled out - Plan Patient continues to need high flow oxygen. Patient is on dexamethasone. Patient's completed course of remdesivir. Patient is on vitamin C. Patient is on zinc. Hypertension is controlled. DVT prophylaxis with low molecular weight heparin.
[2020-01-21] MEDS: Levothyroxine Sodium 125 MCG TAB PO SCH (05:11)
[2020-01-21] MEDS: Guaifenesin DM 100-10/5 ML UDCUP PO PRN ×2 (05:26)
[2020-01-21 05:39] LABS: Anion Gap 13 mmol/L (10-20); BUN (Urea Nitrogen) 30 mg/dL (9.8-20.1); Calc. Creatinine Clearance 131 mL/min (70-130); Carbon Dioxide 23 mmol/L (23-31); Chloride 107 mmol/L (98-107); Glucose 107 mg/dL (80-115); Potassium 4.1 mmol/L (3.5-5.1); Sodium 139 mmol/L (136-145)
[2020-01-21 05:41] LABS: ALT (SGPT) 76 U/L (8-55); AST (SGOT) 32 U/L (5-34); Albumin 2.9 g/dL (3.4-4.8); Alkaline Phosphatase 95 U/L (40-110); Bilirubin, Direct 0.2 mg/dL (0.1-0.3); Bilirubin, Total 0.5 mg/dL (0.2-1.2); Protein, Total 6.6 g/dL (6.0-8.3)
[2020-01-21] MEDS: Zinc Sulfate 220 MG CAP PO SCH (09:41)
[2020-01-21] MEDS: Dexamethasone 4 mg/ml Vial SLOW IVP SCH (09:41)
[2020-01-21] MEDS: Ascorbic Acid 500 mg Chewable Tablet PO SCH (09:41)
[2020-01-21] MEDS: Amlodipine 10 MG TAB PO SCH (09:41)
[2020-01-21] MEDS: Enoxaparin Sodium 40 MG/0.4 ML SYRINGE SC SCH (09:41)
[2020-01-21] MEDS ORDERED: Bisacodyl 5 MG TAB PO PRN (12:50)
[2020-01-21] MEDS ORDERED: Bisacodyl 5 MG TAB PO SCH (13:00)
--- NOTE | 2020-01-21 16:35 | PDOC.HOSPP ---
- Subjective Encounter Date: 01/21/20 Encounter Time: 07:00 Subjective: Patient seen for follow-up regarding acute hypoxic respiratory failure secondary to COVID-19 pneumonia. She denies any new complaints. - Objective Vital Signs & Weight: Vital Signs (12 hours) Temp Pulse Resp BP BP Pulse Ox 01/21/20 15:55 98.3 F 96 18 138/79 97 01/21/20 11:49 98.2 F 111 H 20 147/76 H 100 01/21/20 11:10 94 L 01/21/20 09:41 103 H 148/82 H 94 L 01/21/20 07:54 98.3 F 103 H 20 148/82 H 90 L 01/21/20 05:15 98.6 F 108 H 22 H 164/79 H 95 Weight Weight 248 lb 9.6 oz I&O: 01/20/20 01/21/20 01/22/20 06:59 06:59 06:59 Intake Total 400 1660 Output Total 650 1050 Balance -250 610 Result Diagrams: 01/19/20 05:35 01/21/20 04:52 Additional Labs: I reviewed patient's labs and MAR EKG Reviewed by me: Yes (Normal sinus rhythm on telemetry) Hospitalist ROS - Review of Systems Respiratory: reports: SOB with excertion Cardiovascular: denies: chest pain, palpitations, orthopnea, paroxysmal noc. dyspnea, edema, light headedness Gastrointestinal: denies: nausea, vomiting, abdominal pain, diarrhea, constipati on, melena, hematochezia - Medication Medications: Active Medications Generic Name Dose Route Start Last Admin Trade Name Keeq PRN Reason Stop Dose Admin Amlodipine Besylate 10 mg 01/20/20 09:00 01/21/20 09:41 Amlodipine 10 Mg Tab PO 10 mg DAILY JIM Administration Ascorbic Acid 1,000 mg 01/17/20 09:00 01/21/20 09:41 Ascorbic Acid 500 Mg Chewable Tablet PO 1,000 mg DAILY JIM Administration Dexamethasone 6 mg 01/15/20 09:00 01/21/20 09:41 Dexamethasone 4 Mg/Ml Vial SLOW IVP 6 mg DAILY JIM Administration Enoxaparin Sodium 40 mg 01/15/20 09:00 01/21/20 09:41 Enoxaparin Sodium 40 Mg/0.4 Ml Syringe SC 40 mg 09 JIM Administration Guaifenesin/Dextromethorphan 15 ml 01/14/20 21:47 01/21/20 05:26 Guaifenesin Dm 100-10/5 Ml Udcup PO 15 ml Q4H PRN Administration Cough Levothyroxine Sodium 125 mcg 01/16/20 06:00 01/21/20 05:11 Levothyroxine Sodium 125 Mcg Tab PO 125 mcg 0600 JIM Administration Pantoprazole Sodium 40 mg 01/16/20 09:00 01/21/20 09:41 Pantoprazole 40 Mg Tab PO 40 mg DAILY JIM Administration Verapamil HCl 180 mg 01/16/20 09:00 01/21/20 09:42 Verapamil Er 180 Mg Tab PO 180 mg DAILY JIM Administration Zinc Sulfate 220 mg 01/17/20 09:00 01/21/20 09:41 Zinc Sulfate 220 Mg Cap PO 220 mg DAILY JIM Administration - Exam General - other findings: Morbidly obese Eye: anicteric sclera ENT: normocephalic atraumatic Neck: supple Heart: RRR Respiratory: CTAB Gastrointestinal: soft Skin: no rashes Psychiatric: normal affect, normal behavior Hosp A/P - Plan -Assessment (1) Respiratory failure with hypoxia Code(s): J96.91 - RESPIRATORY FAILURE, UNSPECIFIED WITH HYPOXIA Status: Acute (2) Pneumonia due to COVID-19 virus Code(s): U07.1 - COVID-19; J12.89 - OTHER VIRAL PNEUMONIA Status: Acute (3) HTN (hypertension) Code(s): I10 - ESSENTIAL (PRIMARY) HYPERTENSION Status: Chronic (4) hypothyroidism Status: Chronic (5) Morbidly obese Code(s): E66.01 - MORBID (SEVERE) OBESITY DUE TO EXCESS CALORIES Status: Chronic (6) V tach Code(s): I47.2 - VENTRICULAR TACHYCARDIA Status: Ruled out - Plan Patient still on high flow oxygen. Continue dexamethasone. Completed course of remdesivir. Continue vitamin C and zinc. Hypertension is controlled. DVT prophylaxis with low molecular weight heparin.
[2020-01-22] MEDS: Guaifenesin DM 100-10/5 ML UDCUP PO PRN (04:22)
[2020-01-22] MEDS: Levothyroxine Sodium 125 MCG TAB PO SCH (04:22)
[2020-01-22 06:17] LABS: Anion Gap 14 mmol/L (10-20); BUN (Urea Nitrogen) 29 mg/dL (9.8-20.1); Calc. Creatinine Clearance 131 mL/min (70-130); Calcium 7.9 mg/dL (7.8-10.44); Carbon Dioxide 22 mmol/L (23-31); Chloride 105 mmol/L (98-107); Glucose 104 mg/dL (80-115); Sodium 137 mmol/L (136-145)
[2020-01-22 06:19] LABS: ALT (SGPT) 79 U/L (8-55); AST (SGOT) 37 U/L (5-34); Albumin 2.9 g/dL (3.4-4.8); Alkaline Phosphatase 96 U/L (40-110); Bilirubin, Direct 0.3 mg/dL (0.1-0.3); Bilirubin, Total 0.5 mg/dL (0.2-1.2); Protein, Total 6.4 g/dL (6.0-8.3)
[2020-01-22] MEDS: Zinc Sulfate 220 MG CAP PO SCH (08:03)
[2020-01-22] MEDS: Ascorbic Acid 500 mg Chewable Tablet PO SCH (08:03)
[2020-01-22] MEDS: Amlodipine 10 MG TAB PO SCH (08:04)
[2020-01-22] MEDS: Dexamethasone 4 mg/ml Vial SLOW IVP SCH (08:04)
[2020-01-22] MEDS: Enoxaparin Sodium 40 MG/0.4 ML SYRINGE SC SCH (08:07)
--- NOTE | 2020-01-22 16:44 | PDOC.HOSPP ---
- Subjective Encounter Date: 01/22/20 Encounter Time: 07:00 Subjective: Patient seen for follow-up for hypoxic respiratory failure. She continues to be on high flow oxygen. - Objective Vital Signs & Weight: Vital Signs (12 hours) Temp Pulse Resp BP Pulse Ox 01/22/20 12:00 99.4 F 110 H 24 H 137/70 94 L 01/22/20 08:42 89 L 01/22/20 08:40 98.1 F 107 H 27 H 145/66 H 88 L Weight Weight 248 lb 9.6 oz I&O: 01/21/20 01/22/20 01/23/20 06:59 06:59 06:59 Intake Total 1660 560 Output Total 1050 100 Balance 610 460 Result Diagrams: 01/19/20 05:35 01/22/20 05:42 Additional Labs: Labs and MAR reviewed by me EKG Reviewed by me: Yes (Telemetry shows normal sinus rhythm) Hospitalist ROS - Review of Systems Respiratory: reports: cough, dry. denies: shortness of breath, hemoptysis, SOB with excertion, pleuritic pain, sputum, wheezing Genitourinary: denies: dysuria, frequency, incontinence, hematuria - Medication Medications: Active Medications Generic Name Dose Route Start Last Admin Trade Name Freq PRN Reason Stop Dose Admin Amlodipine Besylate 10 mg 01/20/20 09:00 01/22/20 08:04 Amlodipine 10 Mg Tab PO 10 mg DAILY JIM Administration Ascorbic Acid 1,000 mg 01/17/20 09:00 01/22/20 08:03 Ascorbic Acid 500 Mg Chewable Tablet PO 1,000 mg DAILY JIM Administration Dexamethasone 6 mg 01/15/20 09:00 01/22/20 08:04 Dexamethasone 4 Mg/Ml Vial SLOW IVP 6 mg DAILY JIM Administration Enoxaparin Sodium 40 mg 01/15/20 09:00 01/22/20 08:07 Enoxaparin Sodium 40 Mg/0.4 Ml Syringe SC 40 mg 0900 JIM Administration Guaifenesin/Dextromethorphan 15 ml 01/14/20 21:47 01/22/20 04:22 Guaifenesin Dm 100-10/5 Ml Udcup PO 15 ml Q4H PRN Administration Cough Levothyroxine Sodium 125 mcg 01/16/20 06:00 12/02/20 04:22 Levothyroxine Sodium 125 Mcg Tab PO 125 mcg 0600 JIM Administration Pantoprazole Sodium 40 mg 01/16/20 09:00 01/22/20 08:04 Pantoprazole 40 Mg Tab PO 40 mg DAILY JIM Administration Verapamil HCl 180 mg 01/16/20 09:00 01/22/20 08:03 Verapamil Er 180 Mg Tab PO 180 mg DAILY JIM Administration Zinc Sulfate 220 mg 01/17/20 09:00 01/22/20 08:03 Zinc Sulfate 220 Mg Cap PO 220 mg DAILY JIM Administration - Exam General Appearance: awake alert Eye: scleral icterus ENT: no oropharyngeal lesions Neck: supple Heart: RRR Respiratory: CTAB Gastrointestinal: soft, non-tender Skin: no rashes Psychiatric: normal affect, normal behavior Hosp A/P - Plan -Assessment (1) Respiratory failure with hypoxia Code(s): J96.91 - RESPIRATORY FAILURE, UNSPECIFIED WITH HYPOXIA Status: Acute (2) Pneumonia due to COVID-19 virus Code(s): U07.1 - COVID-19; J12.89 - OTHER VIRAL PNEUMONIA Status: Acute (3) HTN (hypertension) Code(s): I10 - ESSENTIAL (PRIMARY) HYPERTENSION Status: Chronic (4) hypothyroidism Status: Chronic (5) Morbidly obese Code(s): E66.01 - MORBID (SEVERE) OBESITY DUE TO EXCESS CALORIES Status: Chronic (6) V tach Code(s): I47.2 - VENTRICULAR TACHYCARDIA Status: Ruled out - Plan Patient still on high flow oxygen, continue. Monitor sats. Patient is on dexamethasone. Completed course of remdesivir. Patient is on vitamin C and zinc. Hypertension is controlled. DVT prophylaxis with low molecular weight heparin.
[2020-01-23] MEDS: Guaifenesin DM 100-10/5 ML UDCUP PO PRN (03:42)
[2020-01-23] MEDS: Levothyroxine Sodium 125 MCG TAB PO SCH (03:45)
--- NOTE | 2020-01-23 03:52 | PDOC.EVN ---
Event Note - Event Note Event Note: Nursing called, patient tachypneic with RR 30s and hypoxic on high flow NC. Sp02 high 70s, HR 110s with stable BP. Assessment showed resp distress, speaking incomplete sentences. Sp02 low 80s on high flow NC. tachypneic 30s. Lungs basically clear, mild rhonchi lower lobes. Patient denies chest pain. Ordered ABG and Bipap. Will transfer to intermediate care.
[2020-01-23 04:33] LABS: Actual Bicarbonate (HCO3a) 20.1 mEq/L (22-28); Base Excess (BEa) -6.6 mEq/L (-2.0 to +3.0); Calcium, Ionized (arterial) 1.17 mmol/L (1.12-1.30); Carboxyhemoglobin (COHb) 0.3 gm% (0.0-3.0); Hemoglobin (Hb) 11.9 g/dL (12.0-16.0); Potassium - ABG Lab 4.95 mmol/L (3.70-5.30); pH, Arterial 7.27 (7.35-7.45)
[2020-01-23 04:34] LABS: O2 Tension (PaO2), arterial 17.3 mmHg (> 80.0); Puncture Site RRA
[2020-01-23] MEDS ORDERED: Propofol 1,000 MG/100 ML VIAL IV ONE (04:43)
[2020-01-23] MEDS ORDERED: Lorazepam 2 MG/ML VIAL ONE (04:44)
[2020-01-23] MEDS ORDERED: Vecuronium Bromide 20 MG VIAL IV PRN (04:48)
[2020-01-23] MEDS ORDERED: Vecuronium 10 MG VIAL ONE ×2 (04:49→05:01)
[2020-01-23] MEDS: fentaNYL Citrate/PF 2,000 MCG in Sodium Chloride 0.9% 60 ML IV SCH ×2 (04:50→14:59)
[2020-01-23] MEDS ORDERED: Propofol BOLUS 1,000 MG/100 ML VIAL IV PRN (05:00)
[2020-01-23] MEDS ORDERED: DISCONTINUE PREVIOUS NARCOTIC PAIN MEDICATIONS AND BENZODIAZEPINES FS SCH (05:00)
[2020-01-23] MEDS ORDERED: Morphine 2 MG/ML VIAL SLOW IVP PRN (05:00)
[2020-01-23] MEDS ORDERED: Fentanyl BOLUS 250 ML IVPB PRN (05:00)
[2020-01-23] MEDS: Lorazepam 2 MG/ML VIAL SLOW IVP PRN (05:00)
[2020-01-23] MEDS ORDERED: Ventilator Sedation Protocol 1 EACH FS SCH ×2 (05:00→07:00)
[2020-01-23] MEDS: Propofol 1,000 MG/100 ML VIAL IV PRN ×5 (05:02→23:51)
[2020-01-23] MEDS ORDERED: Furosemide 40 MG/4 ML VIAL ONE (05:05)
[2020-01-23 05:11] LABS: ALT (SGPT) 101 U/L (8-55); AST (SGOT) 65 U/L (5-34); Alkaline Phosphatase 122 U/L (40-110); Anion Gap 19 mmol/L (10-20); BUN (Urea Nitrogen) 37 mg/dL (9.8-20.1); Bilirubin, Direct 0.3 mg/dL (0.1-0.3); Bilirubin, Total 0.5 mg/dL (0.2-1.2); Calc. Creatinine Clearance 98 mL/min (70-130); Calcium 7.9 mg/dL (7.8-10.44); Carbon Dioxide 18 mmol/L (23-31); Chloride 102 mmol/L (98-107); Glucose 212 mg/dL (80-115); Potassium 4.2 mmol/L (3.5-5.1); Protein, Total 6.6 g/dL (6.0-8.3); Sodium 135 mmol/L (136-145)
[2020-01-23] MEDS ORDERED: Furosemide 40 MG/4 ML VIAL SLOW IVP SCH (05:15)
--- NOTE | 2020-01-23 05:15 | PDOC.EVN ---
Event Note - Event Note Event Note: code blue called for Respiratory depression but NO loss of pulse or cardiac arrest. successfully intubated and started on sedation and vent protocol. will give Lasix 40 mg IV fish and wildlife scientific aid aware.
[2020-01-23] MEDS: Vecuronium 10 MG VIAL IV PRN ×2 (06:01→07:47)
[2020-01-23] MEDS ORDERED: Electrolyte Replacement Protocol 1 EACH FS ONE (06:58)
[2020-01-23] MEDS ORDERED: niCARdipine 50 MG in Sodium Chloride 0.9% 250 ML 40 MG/230 ML BAG IVPB SCH (07:15)
[2020-01-23] MEDS ORDERED: Electrolyte Replacement Protocol FS PRN (07:15)
[2020-01-23 07:41] LABS: Actual Bicarbonate (HCO3a) 24.7 mEq/L (22-28); Base Excess (BEa) -2.3 mEq/L (-2.0 to +3.0); CO2 Tension 51.9 mmHg (35.0-45.0); Calcium, Ionized (arterial) 1.12 mmol/L (1.12-1.30); Carboxyhemoglobin (COHb) 0.8 gm% (0.0-3.0); Hemoglobin (Hb) 13.2 g/dL (12.0-16.0); Potassium - ABG Lab 4.33 mmol/L (3.70-5.30)
--- NOTE | 2020-01-23 07:52 | CON ---
DATE OF CONSULTATION: 01/23/2020 TIME SPENT: This is 45 minutes of critical care time. CONSULTING PHYSICIAN: Wily Rivas MD. REASON FOR CONSULTATION: Respiratory failure related to COVID-19 pneumonia. HISTORY OF PRESENT ILLNESS: Ms. Lim is a 69-year-old female who was initially hospitalized on 01/15/2020 with COVID-19 pneumonia. She has been managed on high-flow oxygen. She was started on remdesivir many days ago by Dr. Watson. Her hospital course has been characterized by consistent hypoxemia. Her progress note yesterday indicates that she was being continued on high-flow oxygen. This morning, she had a respiratory arrest. She was brought to the ICU. She was intubated. She has now been placed in prone position ventilation. PAST MEDICAL HISTORY: 1. Hyperthyroidism, requiring a thyroidectomy. 2. Hypertension. PAST SURGICAL HISTORY: Thyroidectomy. ALLERGIES: CODEINE. MEDICATIONS: Prior to admission: Verapamil 180 mg daily and levothyroxine 125 mcg daily. SOCIAL HISTORY: She is a nonsmoker. Does not consume alcohol. REVIEW OF SYSTEMS: Unobtainable as patient is currently intubated and on mechanical ventilation. PHYSICAL EXAMINATION: VITAL SIGNS: Heart rate 135, blood pressure 175/83, O2 saturation 94% on 80% FiO2. Respiratory rate 24. GENERAL: My exam is limited because patient is in a prone position. She is obese. She is 5 feet 5 inches. Weighs 248 pounds. BMI 41. HEENT: Difficult to examine. NECK: No JVD. LUNGS: Coarse crackles bilaterally. CARDIOVASCULAR: S1 and S2. Regular. ABDOMEN: Obese. EXTREMITIES: No edema. IMAGING STUDIES: Her x-ray shows diffuse bilateral infiltrates with ET tube in good position. LABORATORY DATA: No white blood cell count has been done. D-dimer is greater than 20. PH prior to intubation was 7.27, pCO2 of 45, pO2 of 17-I am not sure if this is a venous gas or an arterial gas. Sodium 135, potassium 4.2, chloride 102, CO2 of 18, BUN 37, creatinine 0.9, glucose 212. Ferritin 1499, albumin 3, LDH 122. ASSESSMENT: This is a 69-year-old female, with a very severe case of COVID-19 pneumonia with progressive pulmonary infiltrates and worsening hypoxic respiratory failure, now requiring mechanical ventilation. In my opinion, the patient's prognosis is extremely poor and her risk for is quite high. RECOMMENDATIONS: I would recommend prone position ventilation for the next 24 hours. I would recommend continued intermittent paralysis and deep sedation. For management of her hypertension, I will switch her over to a nicardipine drip as diastolic failure could be playing some role in what we are seeing. I will give her convalescent plasma as a rescue treatment, but I have no real hope that will help. I have increased her steroid dose. I have added vitamin D. She was already on vitamin C and zinc. I will increase her anticoagulation to more therapeutic level. The family needs to be made aware that the patient is probably not going to survive this. Job ID: [id number]
--- NOTE | 2020-01-23 08:29 | RAD ---
RADIOGRAPH CHEST 1 VIEW: DATE: 01/23/2020 TIME: 4:54 AM HISTORY: 69-year-old female with respiratory failure. Status post intubation. COMPARISON: 01/14/2020 FINDINGS: Interval worsening of diffuse bilateral infiltrates, now with diffuse consolidation of both lungs wit h air bronchograms. New ETT at mid thoracic trachea. New esophagogastric tube courses caudal to the diaphragm, distal tip outside of field of view. No pneumothorax. IMPRESSION: 1) interval dramatic worsening of now very severe alveolar infiltrates-consolidations throughout both lungs. 2) status post intubation
[2020-01-23] MEDS: Cholecalciferol 1,000 UNITS (25 MCG) TAB PER TUBE SCH (08:33)
[2020-01-23] MEDS: Zinc Sulfate 220 MG CAP PO SCH (08:34)
[2020-01-23] MEDS: Ascorbic Acid 500 mg Chewable Tablet PO SCH (08:34)
[2020-01-23] MEDS: Dexamethasone 4 mg/ml Vial SLOW IVP SCH ×2 (08:34→20:31)
[2020-01-23] MEDS: Enoxaparin Sodium 80 MG/0.8 ML SYRINGE SC SCH ×2 (08:34→20:32)
[2020-01-23] MEDS: Pantoprazole 40 MG VIAL IVP SCH (08:35)
[2020-01-23] MEDS: Rocuronium Bromide 10 MG/ML (10ML VIAL) IVP PRN ×7 (09:06→22:47)
[2020-01-23 17:22] LABS: ALV-art Gradient 448.525 mmHg (0-20); Puncture Site RRA
--- NOTE | 2020-01-23 17:59 | PDOC.HOSPP ---
- Subjective Encounter Date: 01/23/20 Encounter Time: 11:30 Subjective: Patient seen for follow-up regarding acute hypoxic respiratory failure. She is currently intubated and mechanically ventilated inform physician, could not complete review of systems. - Objective Vital Signs & Weight: Vital Signs (12 hours) Temp Pulse Resp BP Pulse Ox 01/23/20 16:00 98.0 F 24 H 01/23/20 15:24 97 117/75 01/23/20 14:00 24 H 01/23/20 13:52 24 H 01/23/20 12:00 97.9 F 01/23/20 11:13 114 H 134/81 01/23/20 10:00 24 H 01/23/20 08:00 24 H 97 01/23/20 07:30 138 H 156/95 H Weight Admit Weight 248 lb 9.6 oz Weight 248 lb 9.6 oz Most Recent Monitor Data Heart Rate from ECG 93 NIBP 119/70 NIBP BP-Mean 86 Respiration from ECG 24 SpO2 98 I&O: 01/22/20 01/23/20 01/24/20 06:59 06:59 06:59 Intake Total 560 120 0 Output Total 100 750 585 Balance 911 -739 -426 Result Diagrams: 01/19/20 05:35 01/23/20 04:38 Additional Labs: I reviewed patient's labs and MAR EKG Reviewed by me: Yes (Telemetry shows normal sinus rhythm) Hospitalist ROS - Review of Systems ROS unobtainable: due to endotracheal tube - Medication Medications: Active Medications Generic Name Dose Route Start Last Admin Trade Name Freq PRN Reason Stop Dose Admin Ascorbic Acid 1,000 mg 01/17/20 09:00 01/23/20 08:34 Ascorbic Acid 500 Mg Chewable Tablet PO 1,000 mg DAILY JIM Administration Cholecalciferol 5,000 units 01/23/20 09:00 01/23/20 08:33 Cholecalciferol 1,000 Units (25 Mcg) Tab PER TUBE 5,000 units DAILY JIM Administration Dexamethasone 6 mg 01/23/20 09:00 01/23/20 08:34 Dexamethasone 4 Mg/Ml Vial SLOW IVP 6 mg BID JIM Administration Enoxaparin Sodium 80 mg 01/23/20 09:00 01/23/20 08:34 Enoxaparin Sodium 80 Mg/0.8 Ml Syringe SC 80 mg 0900,2100 JIM Administration Guaifenesin/Dextromethorphan 15 ml 01/14/20 21:47 01/23/20 03:42 Guaifenesin Dm 100-10/5 Ml Udcup PO 15 ml Q4H PRN Administration Cough Fentanyl Citrate 2,000 mcg/ 100 mls @ 0 mls/hr 01/23/20 05:00 01/23/20 14:59 Sodium Chloride IV 02/22/20 05:00 100 mls INF JIM Administration Protocol Per Protocol Levothyroxine Sodium 125 mcg 01/16/20 06:00 01/23/20 03:45 Levothyroxine Sodium 125 Mcg Tab PO 125 mcg 0600 JIM Administration Lorazepam 2 mg 01/23/20 05:00 01/23/20 05:00 Lorazepam 2 Mg/Ml Vial SLOW IVP 02/22/20 05:00 2 mg Q1H PRN Administration Breakthrough agitation Pantoprazole Sodium 40 mg 01/23/20 09:00 01/23/20 08:35 Pantoprazole 40 Mg Vial IVP 40 mg DAILY JIM Administration Propofol 1,000 mg 01/23/20 05:00 01/23/20 13:57 Propofol 1,000 Mg/100 Ml Vial IV 02/22/20 05:00 1,000 mg INF PRN Administration TO ACHIEVE GOAL RASS Protocol Rocuronium [place] 100 mg 01/23/20 06:55 01/23/20 17:54 Rocuronium [place] 10 Mg/Ml (10ml Vial) IVP 100 mg Q1H PRN Administration Agitation Zinc Sulfate 220 mg 01/17/20 09:00 01/23/20 08:34 Zinc Sulfate 220 Mg Cap PO 220 mg DAILY JIM Administration - Exam General - other findings: Morbid obese Heart: RRR Respiratory: CTAB Skin: no rashes Neurological - other findings: Unable to assess Psychiatric - other findings: Unable to assess Hosp A/P - Plan -Assessment (1) Respiratory failure with hypoxia Code(s): J96.91 - RESPIRATORY FAILURE, UNSPECIFIED WITH HYPOXIA Status: Acute (2) Pneumonia due to COVID-19 virus Code(s): U07.1 - COVID-19; J12.89 - OTHER VIRAL PNEUMONIA Status: Acute (3) HTN (hypertension) Code(s): I10 - ESSENTIAL (PRIMARY) HYPERTENSION Status: Chronic (4) hypothyroidism Status: Chronic (5) Morbidly obese Code(s): E66.01 - MORBID (SEVERE) OBESITY DUE TO EXCESS CALORIES Status: Chronic (6) V tach Code(s): I47.2 - VENTRICULAR TACHYCARDIA Status: Ruled out - Plan Medically worsened overnight, currently intubated and mechanically ventilated in prone position. Continue dexamethasone. Completed course of remdesivir. Patient is on vitamin C and zinc. Add vitamin D. Hypertension is controlled. DVT prophylaxis with low molecular weight heparin.
[2020-01-24] MEDS: fentaNYL Citrate/PF 2,000 MCG in Sodium Chloride 0.9% 60 ML IV SCH ×2 (01:05→13:42)
[2020-01-24] MEDS: Propofol 1,000 MG/100 ML VIAL IV PRN ×4 (02:59→16:53)
[2020-01-24] MEDS: Rocuronium Bromide 10 MG/ML (10ML VIAL) IVP PRN (03:30)
[2020-01-24] MEDS: Lorazepam 2 MG/ML VIAL SLOW IVP PRN ×2 (05:08→09:34)
[2020-01-24] MEDS: Levothyroxine Sodium 125 MCG TAB PO SCH (05:08)
--- NOTE | 2020-01-24 08:10 | PRG ---
DATE OF SERVICE: 01/24/2020 35 minutes of critical care time. SUBJECTIVE: The patient remains intubated on mechanical ventilation. She was placed in a supine position yesterday and so far, has tolerated that. OBJECTIVE: VITAL SIGNS: Temperature 98.5, pulse 94, blood pressure 157/79, O2 sats 98% on 80% oxygen. NEUROLOGIC: She is deeply sedated. Does not follow commands. HEENT: Otherwise unremarkable except for tubes in place. NECK: No JVD. LUNGS: Coarse breath sounds. CARDIOVASCULAR: S1 and S2. Slightly tachycardic. ABDOMEN: Obese, soft, and nontender. EXTREMITIES: Slight edema throughout. LABORATORY DATA: Her labs have not been drawn this morning, therefore, ABG is also pending. Her current ventilator parameters are assist-control rate 24, inspiratory pressure is 25, and FiO2 of 70% on a PEEP of 12. X-ray shows diffuse bilateral infiltrates. ASSESSMENT: 1. COVID-19 pneumonia - very severe. 2. Acute hypoxic respiratory failure requiring mechanical ventilation. 3. Morbid obesity. PLAN: Continue anticoagulation, steroids, mechanical ventilation, and blood pressure control. Her prognosis remains extremely poor for functional recovery. I will initiate tube feeds. Job ID: [id number]
[2020-01-24 08:22] LABS: Mean Corpuscular HGB CONC 32.9 g/dL (32.0-36.0); Mean Corpuscular Hemoglobin 32.2 pg (27.0-31.0); Mean Corpuscular Volume 97.7 fL (78.0-98.0); Mean Platelet Volume 8.4 fL (7.4-10.4); Platelet Count 209 thou/uL (130-400); RBC Distribution Width 13.1 % (11.5-14.5); Red Blood Cell (RBC) Count 3.72 mill/uL (4.20-5.40); White Blood Cell (WBC) Count 20.8 thou/uL (4.8-10.8)
[2020-01-24] MEDS: Enoxaparin Sodium 80 MG/0.8 ML SYRINGE SC SCH ×2 (08:33→21:08)
[2020-01-24] MEDS: Pantoprazole 40 MG VIAL IVP SCH (08:33)
[2020-01-24] MEDS: Dexamethasone 4 mg/ml Vial SLOW IVP SCH ×2 (08:33→21:08)
[2020-01-24 08:34] LABS: Anion Gap 15 mmol/L (10-20); BUN (Urea Nitrogen) 23 mg/dL (9.8-20.1); Calc. Creatinine Clearance 137 mL/min (70-130); Calcium 8.1 mg/dL (7.8-10.44); Carbon Dioxide 26 mmol/L (23-31); Chloride 99 mmol/L (98-107); Glucose 119 mg/dL (80-115); Sodium 136 mmol/L (136-145)
[2020-01-24] MEDS: Zinc Sulfate 220 MG CAP PO SCH (08:34)
[2020-01-24] MEDS: Cholecalciferol 1,000 UNITS (25 MCG) TAB PER TUBE SCH (08:34)
[2020-01-24] MEDS: Ascorbic Acid 500 mg Chewable Tablet PO SCH (08:34)
[2020-01-24 08:35] LABS: ALT (SGPT) 103 U/L (8-55); AST (SGOT) 53 U/L (5-34); Alkaline Phosphatase 131 U/L (40-110); Bilirubin, Direct 1.6 mg/dL (0.1-0.3); Protein, Total 6.7 g/dL (6.0-8.3)
[2020-01-24 08:35] LABS: Actual Bicarbonate (HCO3a) 25.3 mEq/L (22-28); Base Excess (BEa) 0.2 mEq/L (-2.0 to +3.0); CO2 Tension 42.6 mmHg (35.0-45.0); Calcium, Ionized (arterial) 1.14 mmol/L (1.12-1.30); Hemoglobin (Hb) 12.6 g/dL (12.0-16.0); Potassium - ABG Lab 3.95 mmol/L (3.70-5.30); pH, Arterial 7.39 (7.35-7.45)
[2020-01-24 08:43] LABS: O2 Tension (PaO2), arterial 41.3 mmHg (> 80.0); Puncture Site RRA
--- NOTE | 2020-01-24 09:02 | RAD ---
PORTABLE CHEST: INDICATION: Pneumonia. COMPARISON: 01/23/2020. FINDINGS/IMPRESSION: ET tube and NG tube remain in place. There are bilateral hazy alveolar-type infiltrates throughout b oth lungs. The upper lung gurrola appear somewhat better aerated today suggesting some interval impro vement from yesterday. POS: AGW
[2020-01-24 09:27] LABS: Band 1 % (5-11); Eosinophils 1 % (0-10); Lymphocytes 3 % (21-51); MDiff Complete? YES; Monocytes 6 % (0-10); Neutrophil 88 % (42-75); Platelet Morphology Comment Appears Adequate; RBC Morphology Normal; Reactive Lymphocytes 1 % (0-10)
--- NOTE | 2020-01-24 16:49 | PDOC.HOSPP ---
- Subjective Encounter Date: 01/24/20 Encounter Time: 10:30 Subjective: Patient seen for follow-up regarding COVID-19 pneumonia causing acute hypoxic respiratory failure. She is intubated and mechanically ventilated, could not complete review of systems. - Objective Vital Signs & Weight: Vital Signs (12 hours) Temp Pulse Resp Pulse Ox 01/24/20 16:00 24 H 01/24/20 14:16 67 01/24/20 14:00 24 H 01/24/20 12:00 97.8 F 24 H 01/24/20 10:28 67 01/24/20 10:00 24 H 01/24/20 08:00 97.4 F L 24 H 94 L 01/24/20 07:56 98 01/24/20 06:00 24 H Weight Admit Weight 248 lb 9.6 oz Weight 248 lb 9.6 oz Most Recent Monitor Data Heart Rate from ECG 61 NIBP 124/70 NIBP BP-Mean 88 Respiration from ECG 24 SpO2 93 I&O: 01/23/20 01/24/20 01/25/20 06:59 06:59 06:59 Intake Total 120 1007 30 Output Total 750 2060 550 Balance -630 -1053 -520 Result Diagrams: 01/24/20 08:06 01/24/20 08:06 Additional Labs: Accuchecks 01/24/20 12:25 POC Glucose 171 H I reviewed patient's labs and MAR EKG Reviewed by me: Yes (Normal sinus rhythm on telemetry) Hospitalist ROS - Review of Systems ROS unobtainable: due to endotracheal tube - Medication Medications: Active Medications Generic Name Dose Route Start Last Admin Trade Name Kristyn PRN Reason Stop Dose Admin Ascorbic Acid 1,000 mg 01/17/20 09:00 01/24/20 08:34 Ascorbic Acid 500 Mg Chewable Tablet PO 1,000 mg DAILY JIM Administration Cholecalciferol 5,000 units 01/23/20 09:00 01/24/20 08:34 Cholecalciferol 1,000 Units (25 Mcg) Tab PER TUBE 5,000 units DAILY JIM Administration Dexamethasone 6 mg 01/23/20 09:00 01/24/20 08:33 Dexamethasone 4 Mg/Ml Vial SLOW IVP 6 mg BID JIM Administration Enoxaparin Sodium 80 mg 01/23/20 09:00 01/24/20 08:33 Enoxaparin Sodium 80 Mg/0.8 Ml Syringe SC 80 mg 0900,2100 JIM Administration Guaifenesin/Dextromethorphan 15 ml 01/14/20 21:47 01/23/20 03:42 Guaifenesin Dm 100-10/5 Ml Udcup PO 15 ml Q4H PRN Administration Cough Fentanyl Citrate 2,000 mcg/ 100 mls @ 0 mls/hr 01/23/20 05:00 01/24/20 13:42 Sodium Chloride IV 02/22/20 05:00 100 mls INF JIM Administration Protocol Per Protocol Levothyroxine Sodium 125 mcg 01/16/20 06:00 01/24/20 05:08 Levothyroxine Sodium 125 Mcg Tab PO 125 mcg 0600 JIM Administration Lorazepam 2 mg 01/23/20 05:00 01/24/20 09:34 Lorazepam 2 Mg/Ml Vial SLOW IVP 02/22/20 05:00 2 mg Q1H PRN Administration Breakthrough agitation Pantoprazole Sodium 40 mg 01/23/20 09:00 01/24/20 08:33 Pantoprazole 40 Mg Vial IVP 40 mg DAILY JIM Administration Propofol 1,000 mg 01/23/20 05:00 01/24/20 09:35 Propofol 1,000 Mg/100 Ml Vial IV 02/22/20 05:00 1,000 mg INF PRN Administration TO ACHIEVE GOAL RASS Protocol Rocuronium [place] 100 mg 01/23/20 06:55 01/24/20 03:30 Rocuronium [place] 10 Mg/Ml (10ml Vial) IVP 100 mg Q1H PRN Administration Agitation Zinc Sulfate 220 mg 01/17/20 09:00 01/24/20 08:34 Zinc Sulfate 220 Mg Cap PO 220 mg DAILY JIM Administration - Exam General - other findings: Morbid obesity, intubated ENT: moist mucosa Neck - other findings: Endotracheal tube Heart: RRR Respiratory: CTAB Gastrointestinal: soft Skin: no rashes Psychiatric - other findings: Unable to assess Hosp A/P - Plan Patient is a 69-year-old lady who was admitted to the hospital on January 14, 2020 for COVID-19 pneumonia. She was also suspected to have episodes of ventricular tachycardia on telemetry. She was seen by cardiology service, and it was felt that it was artifact on the monitor. Amiodarone was discontinued. She was seen by infectious disease service. She was needing high flow oxygen and was started on remdesivir. She also received dexamethasone and DVT prophylaxis. She wished to be transferred to a facility in [place] but refused the transfer after she was accepted at [facility] there. She was also offered convalescent plasma and did not wish to have it. In the paralegal legal secretary hours of January 22 ROBERT BARROW was called. She was transferred to critical care unit and started on BiPAP. She was subsequently intubated. She was ventilated in prone position on January 23, 2020, was placed in supine position today. She has received convalescent plasma following transfer to critical care unit, on January 23, 2020. -Assessment (1) Respiratory failure with hypoxia Code(s): J96.91 - RESPIRATORY FAILURE, UNSPECIFIED WITH HYPOXIA Status: Acute (2) Pneumonia due to COVID-19 virus Code(s): U07.1 - COVID-19; J12.89 - OTHER VIRAL PNEUMONIA Status: Acute (3) HTN (hypertension) Code(s): I10 - ESSENTIAL (PRIMARY) HYPERTENSION Status: Chronic (4) hypothyroidism Status: Chronic (5) Morbidly obese Code(s): E66.01 - MORBID (SEVERE) OBESITY DUE TO EXCESS CALORIES Status: Chronic (6) V tach Code(s): I47.2 - VENTRICULAR TACHYCARDIA Status: Ruled out - Plan Continue intubation mechanical ventilation, in CCU. Continue dexamethasone. Patient has completed course of remdesivir. Continue vitamin , zinc and vitamin D. Hypertension is controlled. DVT prophylaxis with low molecular weight heparin.
[2020-01-25] MEDS: Propofol 1,000 MG/100 ML VIAL IV PRN ×5 (00:06→19:41)
[2020-01-25] MEDS: fentaNYL Citrate/PF 2,000 MCG in Sodium Chloride 0.9% 60 ML IV SCH ×2 (03:08→16:15)
[2020-01-25] MEDS: Lorazepam 2 MG/ML VIAL SLOW IVP PRN ×2 (03:08→05:36)
[2020-01-25] MEDS: Levothyroxine Sodium 125 MCG TAB PO SCH (04:30)
[2020-01-25 04:56] LABS: #Lymphocytes 0.3 thou/uL (1.20-3.40); #Monocytes 0.5 thou/uL (0.11-0.59); #Neutrophils 15.5 thou/uL (1.40-6.50); %Eosinophils 0.1 % (0.0-10.0); %Lymphocytes 1.9 % (21.0-51.0); %Monocytes 2.8 % (0.0-10.0); %Neutrophils 95.2 % (42.0-75.0); Hemoglobin 10.7 g/dL (12.0-16.0); Mean Corpuscular HGB CONC 32.3 g/dL (32.0-36.0); Mean Corpuscular Hemoglobin 31.7 pg (27.0-31.0); Mean Corpuscular Volume 98.2 fL (78.0-98.0); Mean Platelet Volume 8.4 fL (7.4-10.4); Platelet Count 203 thou/uL (130-400); RBC Distribution Width 13.2 % (11.5-14.5); Red Blood Cell (RBC) Count 3.37 mill/uL (4.20-5.40); White Blood Cell (WBC) Count 16.2 thou/uL (4.8-10.8)
[2020-01-25 05:16] LABS: Anion Gap 12 mmol/L (10-20); BUN (Urea Nitrogen) 33 mg/dL (9.8-20.1); Calc. Creatinine Clearance 117 mL/min (70-130); Calcium 7.8 mg/dL (7.8-10.44); Carbon Dioxide 26 mmol/L (23-31); Chloride 103 mmol/L (98-107); Glucose 138 mg/dL (80-115); Potassium 4.4 mmol/L (3.5-5.1); Sodium 137 mmol/L (136-145)
[2020-01-25 05:22] LABS: ALT (SGPT) 88 U/L (8-55); AST (SGOT) 47 U/L (5-34); Albumin 2.5 g/dL (3.4-4.8); Alkaline Phosphatase 113 U/L (40-110); Bilirubin, Direct 0.6 mg/dL (0.1-0.3); Bilirubin, Total 0.8 mg/dL (0.2-1.2); Protein, Total 5.8 g/dL (6.0-8.3)
[2020-01-25] MEDS: Enoxaparin Sodium 80 MG/0.8 ML SYRINGE SC SCH ×2 (08:05→19:42)
[2020-01-25] MEDS: Pantoprazole 40 MG VIAL IVP SCH (08:05)
[2020-01-25] MEDS: Dexamethasone 4 mg/ml Vial SLOW IVP SCH ×2 (08:05→19:42)
[2020-01-25] MEDS: Ascorbic Acid 500 mg Chewable Tablet PO SCH (08:05)
[2020-01-25] MEDS: Cholecalciferol 1,000 UNITS (25 MCG) TAB PER TUBE SCH (08:06)
[2020-01-25] MEDS: Zinc Sulfate 220 MG CAP PO SCH (08:06)
[2020-01-25 08:43] LABS: Actual Bicarbonate (HCO3a) 27.4 mEq/L (22-28); Base Excess (BEa) 1.3 mEq/L (-2.0 to +3.0); CO2 Tension 50.5 mmHg (35.0-45.0); Calcium, Ionized (arterial) 1.15 mmol/L (1.12-1.30); Carboxyhemoglobin (COHb) 0.5 gm% (0.0-3.0); Hemoglobin (Hb) 11.4 g/dL (12.0-16.0); Potassium - ABG Lab 4.55 mmol/L (3.70-5.30); pH, Arterial 7.35 (7.35-7.45)
[2020-01-25 08:49] LABS: O2 Tension (PaO2), arterial 53.7 mmHg (> 80.0); Puncture Site RRA
[2020-01-25 08:50] LABS: ALV-art Gradient 596.175 mmHg (0-20)
--- NOTE | 2020-01-25 09:35 | RAD ---
PORTABLE CHEST: HISTORY: Pneumonia followup. COMPARISON: 01/24/2020. FINDINGS/IMPRESSION: ET tube and NG tube are noted. Bilateral confluent infiltrates throughout both lungs more prominent in the lung bases. Not significantly changed from yesterday. POS: AGW
--- NOTE | 2020-01-25 11:16 | PRG ---
DATE OF SERVICE: CRITICAL CARE TIME: 30 minutes. SUBJECTIVE: Ms. Lim remains intubated on mechanical ventilation for COVID-19 pneumonia. Unfortunately, her condition is not improved over night. OBJECTIVE: VITAL SIGNS: Her temperature is 98.1, pulse 86, blood pressure 98/57, O2 saturation 93%. 24-hour intake 1173, output 2045. HEENT: Unremarkable except for the tubes in place. NECK: No JVD. LUNGS: She has diffuse crackles bilaterally. CARDIAC: S1, S2. Regular. ABDOMEN: Soft, obese, nontender. EXTREMITIES: Edematous. LABORATORY DATA: Sodium 137, potassium 4.4, chloride 103, CO2 of 26, BUN 33, creatinine 0.8, glucose 138, ferritin 1591. C-reactive protein 7.1, white blood cell count 16.2, hematocrit 33.1, and platelet count 203. ABG; pH 7.35, pCO2 of 50, PO2 of 54. She is on assist-control rate 24, inspiratory pressure 25 with 12 PEEP a FiO2 of 95%. Her x-ray continues to show diffuse bilateral infiltrates. ASSESSMENT/PLAN: Coronavirus disease 2019 pneumonia with worsening clinical status despite aggressive intervention. It looks like she is at least 10 days into her illness and I suspect she will continue to worsen despite aggressive therapy. I spent a great deal of time discussing the situation over the phone with the patient's son, Mr. Whelan and the patient's Mr. lim. I have told them that the patient's chances of dying are quite high and that they need to start making some decisions about code status. We are continuing the patient on steroids and anticoagulation. There is not much room to increase her ventilation other than to go back in a prone position. Job ID: [id number]
--- NOTE | 2020-01-25 14:27 | EKG ---
Test Reason : Blood Pressure : / mmHG Vent. Rate : 089 BPM Atrial Rate : 089 BPM P-R Int : 144 ms QRS Dur : 082 ms QT Int : 366 ms P-R-T Axes : 040 049 030 degrees QTc Int : 445 ms Normal sinus rhythm Nonspecific T wave abnormality Abnormal ECG Confirmed by SHANA PARR DO ([id number]), offline editor MELVINA NICHOLAS ([id number]) on 01/25/2020 2:27:14 PM Referred By: Confirmed By:SHANA PARR DO
--- NOTE | 2020-01-25 20:24 | PDOC.HOSPP ---
- Subjective Encounter Date: 01/25/20 Encounter Time: 12:00 Subjective: Patient was seen and examined in bed. She is in the ICU on ventilator support. Condition is generally worsening despite aggressive intervention - Objective Vital Signs & Weight: Vital Signs (12 hours) Temp Pulse Resp BP 01/25/20 19:00 98.2 F 01/25/20 18:25 99 88/50 L 01/25/20 18:00 24 H 01/25/20 16:00 98.0 F 24 H 01/25/20 15:01 83 104/70 01/25/20 14:00 24 H 01/25/20 12:00 98.1 F 24 H 01/25/20 11:00 86 100/60 01/25/20 10:00 24 H 01/25/20 08:24 76 100/62 Weight Admit Weight 248 lb 9.6 oz Weight 248 lb 9.6 oz Most Recent Monitor Data Heart Rate from ECG 97 NIBP 113/55 NIBP BP-Mean 74 Respiration from ECG 24 SpO2 93 I&O: 01/24/20 01/25/20 01/26/20 06:59 06:59 06:59 Intake Total 1007 1173 655 Output Total 3616 2045 745 Balance -1053 -872 -90 Result Diagrams: 01/25/20 04:41 01/25/20 04:41 Hospitalist ROS - Medication Medications: Active Medications Generic Name Dose Route Start Last Admin Trade Name Freq PRN Reason Stop Dose Admin Ascorbic Acid 1,000 mg 01/17/20 09:00 01/25/20 08:05 Ascorbic Acid 500 Mg Chewable Tablet PO 1,000 mg DAILY JIM Administration Cholecalciferol 5,000 units 01/23/20 09:00 01/25/20 08:06 Cholecalciferol 1,000 Units (25 Mcg) Tab PER TUBE 5,000 units DAILY JIM Administration Dexamethasone 6 mg 01/23/20 09:00 01/25/20 19:42 Dexamethasone 4 Mg/Ml Vial SLOW IVP 6 mg BID JIM Administration Enoxaparin Sodium 80 mg 01/23/20 09:00 01/25/20 19:42 Enoxaparin Sodium 80 Mg/0.8 Ml Syringe SC 80 mg 0900,2100 JIM Administration Guaifenesin/Dextromethorphan 15 ml 01/14/20 21:47 01/23/20 03:42 Guaifenesin Dm 100-10/5 Ml Udcup PO 15 ml Q4H PRN Administration Cough Fentanyl Citrate 2,000 mcg/ 100 mls @ 0 mls/hr 01/23/20 05:00 01/25/20 16:15 Sodium Chloride IV 02/22/20 05:00 100 mls INF JIM Administration Protocol Per Protocol Levothyroxine Sodium 125 mcg 01/16/20 06:00 01/25/20 04:30 Levothyroxine Sodium 125 Mcg Tab PO 125 mcg 0600 JIM Administration Lorazepam 2 mg 01/23/20 05:00 01/25/20 05:36 Lorazepam 2 Mg/Ml Vial SLOW IVP 02/22/20 05:00 2 mg Q1H PRN Administration Breakthrough agitation Pantoprazole Sodium 40 mg 01/23/20 09:00 01/25/20 08:05 Pantoprazole 40 Mg Vial IVP 40 mg DAILY JIM Administration Propofol 1,000 mg 01/23/20 05:00 01/25/20 19:41 Propofol 1,000 Mg/100 Ml Vial IV 02/22/20 05:00 1,000 mg INF PRN Administration TO ACHIEVE GOAL RASS Protocol Rocuronium [place] 100 mg 01/23/20 06:55 01/24/20 03:30 Rocuronium [place] 10 Mg/Ml (10ml Vial) IVP 100 mg Q1H PRN Administration Agitation Zinc Sulfate 220 mg 01/17/20 09:00 01/25/20 08:06 Zinc Sulfate 220 Mg Cap PO 220 mg DAILY JIM Administration - Exam General - other findings: Patient in bed in ICU. On ventilator support. Not communicating Heart: RRR, no murmur Respiratory - other findings: Reduced air entry bilaterally. Gastrointestinal: soft, non-distended Extremities: no cyanosis, no clubbing Neurological - other findings: Patient obtunded. Psychiatric - other findings: Unable to assess. Hosp A/P - Plan This is a 69-year-old female patient with a history of hypothyroidism, morbid obesity admitted on account of acute hypoxic respiratory failure secondary to Covid pneumonia. She was initially on BiPAP but deteriorated and required intubation and transferred to the ICU. She has not made significant improvements in spite of aggressive management. Acute hypoxic respiratory failure In the setting of Covid Continue ventilator support per pulmonology. Continue Covid management Appreciate pulmonology input. Pneumonia due to Covid Continue steroids and anticoagulation Completed remdesivir Continue monitoring. ID following. Hypertension Home BP medications as needed. Hypothyroidism Begin levothyroxine V. tach VT prophylaxisLovenox CODE STATUSDNR
[2020-01-26] MEDS: Propofol 1,000 MG/100 ML VIAL IV PRN ×6 (01:57→23:11)
[2020-01-26 04:44] LABS: ALT (SGPT) 126 U/L (8-55); AST (SGOT) 71 U/L (5-34); Albumin 2.6 g/dL (3.4-4.8); Alkaline Phosphatase 110 U/L (40-110); Bilirubin, Direct 0.5 mg/dL (0.1-0.3); Bilirubin, Total 0.6 mg/dL (0.2-1.2); Protein, Total 5.9 g/dL (6.0-8.3)
[2020-01-26 04:56] LABS: Anion Gap 15 mmol/L (10-20); BUN (Urea Nitrogen) 67 mg/dL (9.8-20.1); Calc. Creatinine Clearance 64 mL/min (70-130); Calcium 7.7 mg/dL (7.8-10.44); Carbon Dioxide 25 mmol/L (23-31); Chloride 101 mmol/L (98-107); Glucose 102 mg/dL (80-115); Potassium 4.3 mmol/L (3.5-5.1); Sodium 137 mmol/L (136-145)
[2020-01-26] MEDS: fentaNYL Citrate/PF 2,000 MCG in Sodium Chloride 0.9% 60 ML IV SCH ×2 (04:58→18:00)
[2020-01-26 05:24] LABS: #Eosinphils 0.1 thou/uL (0.0-0.7); #Lymphocytes 1.2 thou/uL (1.20-3.40); #Monocytes 0.7 thou/uL (0.11-0.59); #Neutrophils 15.4 thou/uL (1.40-6.50); %Eosinophils 0.3 % (0.0-10.0); %Lymphocytes 6.7 % (21.0-51.0); %Monocytes 3.9 % (0.0-10.0); %Neutrophils 89.1 % (42.0-75.0); Hemoglobin 10.2 g/dL (12.0-16.0); Mean Corpuscular HGB CONC 31.5 g/dL (32.0-36.0); Mean Corpuscular Hemoglobin 31.4 pg (27.0-31.0); Mean Corpuscular Volume 99.7 fL (78.0-98.0); Mean Platelet Volume 8.9 fL (7.4-10.4); Platelet Count 221 thou/uL (130-400); RBC Distribution Width 13.3 % (11.5-14.5); Red Blood Cell (RBC) Count 3.26 mill/uL (4.20-5.40); White Blood Cell (WBC) Count 17.3 thou/uL (4.8-10.8)
[2020-01-26] MEDS: Levothyroxine Sodium 125 MCG TAB PO SCH (05:59)
[2020-01-26 07:43] LABS: Actual Bicarbonate (HCO3a) 24.7 mEq/L (22-28); Base Excess (BEa) -0.9 mEq/L (-2.0 to +3.0); CO2 Tension 44.9 mmHg (35.0-45.0); Calcium, Ionized (arterial) 1.11 mmol/L (1.12-1.30); Carboxyhemoglobin (COHb) 0.6 gm% (0.0-3.0); Hemoglobin (Hb) 10.7 g/dL (12.0-16.0); Potassium - ABG Lab 4.06 mmol/L (3.70-5.30); pH, Arterial 7.36 (7.35-7.45)
[2020-01-26 07:45] LABS: ALV-art Gradient 541.375 mmHg (0-20); O2 Tension (PaO2), arterial 44.2 mmHg (> 80.0); Puncture Site RRA
--- NOTE | 2020-01-26 08:30 | PRG ---
DATE OF SERVICE: 01/26/2020 This is 35 minutes critical care time. SUBJECTIVE: The patient remains intubated on mechanical ventilation, heavily sedated. OBJECTIVE: VITAL SIGNS: Temperature 97.8, pulse 97, blood pressure 108/60, O2 saturation in the low 90s. She is currently on assist control ventilation with a rate 24, inspiratory pressure 25, PEEP 12, FiO2 90%. Twenty-four intake 1472 and output 1035. HEENT: Remarkable for being intubated orally. NECK: No JVD. LUNGS: Poor air movement. CARDIOVASCULAR: S1 and S2. Regular. ABDOMEN: Obese, soft, nontender. EXTREMITIES: Edematous. LABORATORY DATA: ABG; pH 7.36, pCO2 of 45, pO2 of 44. White blood cell count 17.3, hematocrit 32.5, and platelet count 221. Sodium 137, potassium 4.3, chloride 101, CO2 of 25, BUN 67, creatinine 1.5, and glucose 102. Ferritin 1587. C-reactive protein 4.5. Albumin 2.6. IMAGING DATA: Chest x-ray shows no change in the bilateral infiltrates. ASSESSMENT: 1. Severe COVID-19 pneumonia with acute respiratory failure requiring mechanical ventilation. 2. Worsening renal function secondary to the coronavirus infection. 3. Morbid obesity. PLAN: At this point, I think there is little hope that this patient will survive this illness. I spoke to the family numerous times yesterday in conference including the patient's and the patient's sons. They did agree to DNR status. Based on her declining renal function, I am going to try to give her some fluid today, but I have no optimism that will help. Job ID: [id number]
[2020-01-26] MEDS: Enoxaparin Sodium 80 MG/0.8 ML SYRINGE SC SCH ×2 (09:10→20:50)
[2020-01-26] MEDS: Ascorbic Acid 500 mg Chewable Tablet PO SCH (09:10)
[2020-01-26] MEDS: Lorazepam 2 MG/ML VIAL SLOW IVP PRN ×2 (09:10→22:46)
[2020-01-26] MEDS: Pantoprazole 40 MG VIAL IVP SCH (09:10)
[2020-01-26] MEDS: Dexamethasone 4 mg/ml Vial SLOW IVP SCH ×2 (09:10→20:51)
[2020-01-26] MEDS: Zinc Sulfate 220 MG CAP PO SCH (09:11)
[2020-01-26] MEDS: Sodium Chloride 0.9% 1,000 ML IV SCH ×2 (09:11→13:08)
[2020-01-26] MEDS: Cholecalciferol 1,000 UNITS (25 MCG) TAB PER TUBE SCH (09:11)
--- NOTE | 2020-01-26 09:41 | RAD ---
PORTABLE CHEST: HISTORY: Pneumonia followup. CCU followup. COMPARISON: 01/25/2020. FINDINGS: Patchy bilateral diffuse infiltrates are again seen and not significantly changed from yesterday. ET tube and NG tube are unchanged. IMPRESSION: Stable chest. POS: AGW
--- NOTE | 2020-01-26 16:13 | PDOC.BPN ---
- Brief Progress Note Encounter Date: 01/26/20 I did not physically examine the patient today. She had already been evaluated by pulmonology management decisions taking. This 69-year-old female patient admitted on account of pneumonia due to Covid of acute hypoxic respiratory failure and has been on ventilator support. She has not made any significant improvements in spite of intense management. Yesterday DNR was got from her family. Treatment is currently being continued but prognosis is grim. Pulmonology following at the moment
[2020-01-27] MEDS: Propofol 1,000 MG/100 ML VIAL IV PRN ×3 (03:05→20:48)
[2020-01-27] MEDS: Rocuronium Bromide 10 MG/ML (10ML VIAL) IVP PRN ×2 (03:05→20:30)
[2020-01-27] MEDS: Sodium Chloride 0.9% 1,000 ML IV SCH (03:05)
[2020-01-27 04:22] LABS: #Eosinphils 0.1 thou/uL (0.0-0.7); #Lymphocytes 0.4 thou/uL (1.20-3.40); #Monocytes 0.5 thou/uL (0.11-0.59); #Neutrophils 15.7 thou/uL (1.40-6.50); %Eosinophils 0.4 % (0.0-10.0); %Lymphocytes 2.4 % (21.0-51.0); %Monocytes 2.9 % (0.0-10.0); %Neutrophils 94.3 % (42.0-75.0); Hemoglobin 10.1 g/dL (12.0-16.0); Mean Corpuscular HGB CONC 31.7 g/dL (32.0-36.0); Mean Corpuscular Hemoglobin 31.4 pg (27.0-31.0); Mean Corpuscular Volume 99.1 fL (78.0-98.0); Mean Platelet Volume 8.7 fL (7.4-10.4); Platelet Count 219 thou/uL (130-400); RBC Distribution Width 13.6 % (11.5-14.5); Red Blood Cell (RBC) Count 3.22 mill/uL (4.20-5.40); White Blood Cell (WBC) Count 16.6 thou/uL (4.8-10.8)
[2020-01-27 04:45] LABS: Anion Gap 13 mmol/L (10-20); BUN (Urea Nitrogen) 60 mg/dL (9.8-20.1); Calc. Creatinine Clearance 106 mL/min (70-130); Calcium 7.7 mg/dL (7.8-10.44); Carbon Dioxide 26 mmol/L (23-31); Chloride 103 mmol/L (98-107); Glucose 145 mg/dL (80-115); Potassium 4.5 mmol/L (3.5-5.1); Sodium 137 mmol/L (136-145)
[2020-01-27 04:47] LABS: ALT (SGPT) 215 U/L (8-55); AST (SGOT) 120 U/L (5-34); Albumin 2.6 g/dL (3.4-4.8); Alkaline Phosphatase 118 U/L (40-110); Bilirubin, Direct 0.5 mg/dL (0.1-0.3); Bilirubin, Total 0.6 mg/dL (0.2-1.2); Protein, Total 6.1 g/dL (6.0-8.3)
[2020-01-27] MEDS: Levothyroxine Sodium 125 MCG TAB PO SCH (05:20)
[2020-01-27] MEDS: fentaNYL Citrate/PF 2,000 MCG in Sodium Chloride 0.9% 60 ML IV SCH ×2 (07:54→20:29)
[2020-01-27 07:59] LABS: Actual Bicarbonate (HCO3a) 28.4 mEq/L (22-28); Base Excess (BEa) 1.9 mEq/L (-2.0 to +3.0); Calcium, Ionized (arterial) 1.11 mmol/L (1.12-1.30); Carboxyhemoglobin (COHb) 0.7 gm% (0.0-3.0); Hemoglobin (Hb) 10.5 g/dL (12.0-16.0); Potassium - ABG Lab 4.57 mmol/L (3.70-5.30); pH, Arterial 7.34 (7.35-7.45)
[2020-01-27 08:01] LABS: O2 Tension (PaO2), arterial 46.8 mmHg (> 80.0)
[2020-01-27 08:02] LABS: Puncture Site RRA
[2020-01-27] MEDS: Enoxaparin Sodium 80 MG/0.8 ML SYRINGE SC SCH ×2 (08:10→21:01)
[2020-01-27] MEDS: Pantoprazole 40 MG VIAL IVP SCH (08:11)
[2020-01-27] MEDS: Ascorbic Acid 500 mg Chewable Tablet PO SCH (08:11)
[2020-01-27] MEDS: Dexamethasone 4 mg/ml Vial SLOW IVP SCH ×2 (08:11→21:01)
[2020-01-27] MEDS: Zinc Sulfate 220 MG CAP PO SCH (08:12)
[2020-01-27] MEDS: Cholecalciferol 1,000 UNITS (25 MCG) TAB PER TUBE SCH (08:12)
--- NOTE | 2020-01-27 08:29 | RAD ---
PORTABLE CHEST: HISTORY: Pneumonia followup with CCU followup. On ventilator. COMPARISON: 01/26/2020. FINDINGS: ET tube and NG tube remain in place. Cardiomegaly with vascular congestion. Bilateral confluent inf iltrates more extensive in the mid and lower lungs. IMPRESSION: No evidence of a significant interval change. POS: AGW
--- NOTE | 2020-01-27 08:59 | PRG ---
DATE OF SERVICE: 01/27/2020 35 minutes of critical care time. SUBJECTIVE: The patient remains about the same. She is on mechanical ventilation, heavily sedated with continued compliance issues. OBJECTIVE: VITAL SIGNS: Temperature 98.9, pulse 85, blood pressure 105/61. Currently, on propofol and fentanyl drips. Intake for 24 hours 3277, output 1695. HEENT: Unremarkable. NECK: No JVD. LUNGS: Poor air movement with crackles. CARDIAC: S1 and S2. Regular. ABDOMEN: Soft. EXTREMITIES: Edematous. LABORATORY DATA: Sodium 137, potassium 4.5, chloride 103, CO2 of 26, BUN 60, creatinine 0.9, and glucose 145. C-reactive protein is 11.3. PH 7.34, pCO2 of 54, pO2 of 46 on assist control, rate 24, inspiratory pressure 25, FiO2 100%, PEEP 12. White blood cell count 16.6, hematocrit 31.9, and platelet count 219. X-ray continues to show bilateral diffuse infiltrates. ASSESSMENT: 1. COVID-19 pneumonia with no indication of improvement and continued increase in inflammatory markers. 2. Renal dysfunction. 3. Morbid obesity. PLAN: 1. Continue anticoagulation, steroids, mechanical ventilation. 2. Continue hydration for another 24 hours, then cut back on IV fluids. 3. Prognosis for recovery is extremely poor. This has been communicated to the family on several occasions. The patient is DNAR. Job ID: [id number]
--- NOTE | 2020-01-27 19:09 | PDOC.HOSPP ---
- Subjective Encounter Date: 01/27/20 Encounter Time: 10:00 Subjective: Patient was seen and examined in bed. She was on ongoing ventilator support. No significant events overnight - Objective Vital Signs & Weight: Vital Signs (12 hours) Temp Pulse Resp BP Pulse Ox 01/27/20 18:28 89 109/58 L 01/27/20 18:00 26 H 01/27/20 16:00 98.0 F 24 H 01/27/20 14:29 91 123/69 01/27/20 14:00 24 H 01/27/20 13:10 96 129/63 01/27/20 12:00 98.3 F 27 H 01/27/20 11:12 84 125/63 01/27/20 10:00 26 H 01/27/20 08:00 98.8 F 25 H 76 L 01/27/20 07:38 85 105/61 Weight Admit Weight 248 lb 9.6 oz Weight 248 lb 9.6 oz Most Recent Monitor Data Heart Rate from ECG 92 NIBP 109/58 NIBP BP-Mean 75 Respiration from ECG 25 SpO2 77 I&O: 01/26/20 01/27/20 01/28/20 06:59 06:59 06:59 Intake Total 1472 3277 1609 Output Total 1035 1695 800 Balance 437 1582 809 Result Diagrams: 01/27/20 03:15 01/27/20 03:15 Hospitalist ROS - Medication Medications: Active Medications Generic Name Dose Route Start Last Admin Trade Name Freq PRN Reason Stop Dose Admin Ascorbic Acid 1,000 mg 01/17/20 09:00 01/27/20 08:11 Ascorbic Acid 500 Mg Chewable Tablet PO 1,000 mg DAILY JIM Administration Cholecalciferol 5,000 units 01/23/20 09:00 01/27/20 08:12 Cholecalciferol 1,000 Units (25 Mcg) Tab PER TUBE 5,000 units DAILY JIM Administration Dexamethasone 6 mg 01/23/20 09:00 01/27/20 08:11 Dexamethasone 4 Mg/Ml Vial SLOW IVP 6 mg BID JIM Administration Enoxaparin Sodium 80 mg 01/23/20 09:00 01/27/20 08:10 Enoxaparin Sodium 80 Mg/0.8 Ml Syringe SC 80 mg 0900,2100 JIM Administration Guaifenesin/Dextromethorphan 15 ml 01/14/20 21:47 01/23/20 03:42 Guaifenesin Dm 100-10/5 Ml Udcup PO 15 ml Q4H PRN Administration Cough Fentanyl Citrate 2,000 mcg/ 100 mls @ 0 mls/hr 01/23/20 05:00 01/27/20 07:54 Sodium Chloride IV 02/22/20 05:00 100 mls INF JIM Administration Protocol Per Protocol Sodium Chloride 1,000 mls @ 70 mls/hr 01/26/20 08:15 01/27/20 03:05 Normal Saline 0.9% IV 1,000 mls .[id number] JIM Administration Levothyroxine Sodium 125 mcg 01/16/20 06:00 01/27/20 05:20 Levothyroxine Sodium 125 Mcg Tab PO 125 mcg 0600 JIM Administration Lorazepam 2 mg 01/23/20 05:00 01/26/20 22:46 Lorazepam 2 Mg/Ml Vial SLOW IVP 02/22/20 05:00 2 mg Q1H PRN Administration Breakthrough agitation Pantoprazole Sodium 40 mg 01/23/20 09:00 01/27/20 08:11 Pantoprazole 40 Mg Vial IVP 40 mg DAILY JIM Administration Propofol 1,000 mg 01/23/20 05:00 01/27/20 08:10 Propofol 1,000 Mg/100 Ml Vial IV 02/22/20 05:00 1,000 mg INF PRN Administration TO ACHIEVE GOAL RASS Protocol Rocuronium [place] 100 mg 01/23/20 06:55 01/27/20 03:05 Rocuronium [place] 10 Mg/Ml (10ml Vial) IVP 100 mg Q1H PRN Administration Agitation Zinc Sulfate 220 mg 01/17/20 09:00 01/27/20 08:12 Zinc Sulfate 220 Mg Cap PO 220 mg DAILY JIM Administration - Exam General - other findings: On ongoing ventilator support. Heart: RRR, no murmur, no gallops Respiratory - other findings: Reduced air entry bilaterally Neurological - other findings: Noncommunicativeon vent Psychiatric - other findings: Unable to assess. Hosp A/P - Plan This is a 69-year-old female patient with a history of hypothyroidism, morbid obesity admitted on account of acute hypoxic respiratory failure secondary to Covid pneumonia. She was initially on BiPAP but deteriorated and required intubation and transferred to the ICU. She has not made significant improvements in spite of aggressive management. Prognosis is generally poor. Acute hypoxic respiratory failure In the setting of Covid Continue ventilator support per pulmonology. Continue Covid management Appreciate pulmonology input. Pneumonia due to Covid Continue steroids and anticoagulation Completed remdesivir Continue monitoring. ID following. Hypertension Home BP medications as needed. Hypothyroidism Begin levothyroxine V. tach VT prophylaxisLovenox CODE STATUSDNR
[2020-01-27] MEDS: Lorazepam 2 MG/ML VIAL SLOW IVP PRN (20:48)
[2020-01-28] MEDS: Propofol 1,000 MG/100 ML VIAL IV PRN ×5 (01:06→20:09)
[2020-01-28] MEDS: Rocuronium Bromide 10 MG/ML (10ML VIAL) IVP PRN ×3 (03:18→15:11)
[2020-01-28] MEDS: Sodium Chloride 0.9% 1,000 ML IV SCH (04:14)
[2020-01-28] MEDS: Lorazepam 2 MG/ML VIAL SLOW IVP PRN ×3 (04:14→15:12)
[2020-01-28 05:03] LABS: Anion Gap 13 mmol/L (10-20); BUN (Urea Nitrogen) 53 mg/dL (9.8-20.1); Calc. Creatinine Clearance 121 mL/min (70-130); Calcium 7.9 mg/dL (7.8-10.44); Carbon Dioxide 27 mmol/L (23-31); Chloride 105 mmol/L (98-107); Glucose 164 mg/dL (80-115); Potassium 4.7 mmol/L (3.5-5.1); Sodium 140 mmol/L (136-145)
[2020-01-28 05:07] LABS: ALT (SGPT) 289 U/L (8-55); AST (SGOT) 135 U/L (5-34); Albumin 2.7 g/dL (3.4-4.8); Alkaline Phosphatase 144 U/L (40-110); Bilirubin, Direct 0.6 mg/dL (0.1-0.3); Bilirubin, Total 0.7 mg/dL (0.2-1.2); Protein, Total 6.5 g/dL (6.0-8.3)
[2020-01-28 05:13] LABS: Band 4 % (5-11); Hemoglobin 10.6 g/dL (12.0-16.0); Lymphocytes 5 % (21-51); MDiff Complete? YES; Mean Corpuscular HGB CONC 31.9 g/dL (32.0-36.0); Mean Corpuscular Hemoglobin 31.7 pg (27.0-31.0); Mean Corpuscular Volume 99.5 fL (78.0-98.0); Mean Platelet Volume 8.8 fL (7.4-10.4); Monocytes 4 % (0-10); Myelocyte 1 % (0-0); Neutrophil 86 % (42-75); Platelet Count 267 thou/uL (130-400); RBC Distribution Width 13.6 % (11.5-14.5); Red Blood Cell (RBC) Count 3.33 mill/uL (4.20-5.40); White Blood Cell (WBC) Count 21.9 thou/uL (4.8-10.8)
[2020-01-28] MEDS: Levothyroxine Sodium 125 MCG TAB PO SCH (05:37)
[2020-01-28 07:20] LABS: Actual Bicarbonate (HCO3a) 26.8 mEq/L (22-28); Base Excess (BEa) 0.7 mEq/L (-2.0 to +3.0); CO2 Tension 49.9 mmHg (35.0-45.0); Calcium, Ionized (arterial) 1.12 mmol/L (1.12-1.30); Carboxyhemoglobin (COHb) 1.3 gm% (0.0-3.0); Hemoglobin (Hb) 10.4 g/dL (12.0-16.0); Potassium - ABG Lab 4.98 mmol/L (3.70-5.30); pH, Arterial 7.35 (7.35-7.45)
[2020-01-28 07:25] LABS: O2 Tension (PaO2), arterial 38.5 mmHg (> 80.0); Puncture Site LRA
[2020-01-28 07:26] LABS: ALV-art Gradient 612.125 mmHg (0-20)
--- NOTE | 2020-01-28 07:59 | RAD ---
Portable frontal chest radiograph: 01/28/2020 COMPARISON: 01/27/2020 HISTORY: Evaluate pneumonia, respiratory distress FINDINGS: Stable endotracheal tube and nasogastric tube. No pneumothorax is evident. Extensive severe interstitial and alveolar opacity noted bilaterally with a perihilar and bibasilar p redominance. IMPRESSION: No significant interval change.
--- NOTE | 2020-01-28 09:00 | PRG ---
DATE OF SERVICE: 01/28/2020 35 minutes of critical care time. SUBJECTIVE: The patient remains intubated, on mechanical ventilation for COVID-19 pneumonia. OBJECTIVE: VITAL SIGNS: Temperature is 97.9, pulse is 90, blood pressure 91/57, O2 saturation generally in the mid to low 80s. NEUROLOGIC: She is very sedated. She has been intermittently paralyzed. HEENT: Unremarkable. NECK: No JVD. LUNGS: Poor air movement. Coarse breath sounds. CARDIOVASCULAR: S1, S2. Regular. ABDOMEN: Soft and nontender. EXTREMITIES: Edematous. LABORATORY DATA: C-reactive protein is 8.9. White blood cell count 21.9, hematocrit 33.1, and platelet count 267. Sodium 140, potassium 4.7, chloride 105, CO2 of 27, BUN 53, creatinine 0.8, and glucose 164. ASSESSMENT: 1. COVID-19 pneumonia. 2. Acute hypoxic respiratory failure. 3. Declining oxygenation despite appropriate steroids. PLAN: I am going to go ahead and add antibiotics, antifungal, assuming that she could have a secondary infection since she is continuing to decline. I am going to bump up her steroid dose. Both of these were last-ditch measures as we are not seeing any improvement whatsoever and I expect her to pass away soon. Job ID: [id number]
[2020-01-28] MEDS: Zinc Sulfate 220 MG CAP PO SCH (09:25)
[2020-01-28] MEDS: Cholecalciferol 1,000 UNITS (25 MCG) TAB PER TUBE SCH (09:25)
[2020-01-28] MEDS: Ascorbic Acid 500 mg Chewable Tablet PO SCH (09:26)
[2020-01-28] MEDS: Enoxaparin Sodium 80 MG/0.8 ML SYRINGE SC SCH ×2 (09:27→20:13)
[2020-01-28] MEDS: Pantoprazole 40 MG VIAL IVP SCH (09:28)
[2020-01-28] MEDS: fentaNYL Citrate/PF 2,000 MCG in Sodium Chloride 0.9% 60 ML IV SCH ×2 (09:54→22:23)
[2020-01-28] MEDS: Cefepime 1 GM in Sodium Chloride 0.9% 100 ML IVPB SCH ×2 (09:57→20:09)
[2020-01-28] MEDS: Dexamethasone 4 mg/ml Vial SLOW IVP SCH ×3 (09:57→20:13)
[2020-01-28] MEDS: Sodium Chloride 0.45% 1,000 ML IV SCH (09:59)
[2020-01-28] MEDS: Micafungin 100 MG in Sodium Chloride 0.9% 100 ML IVPB SCH (10:39)
--- NOTE | 2020-01-28 18:07 | PDOC.HOSPP ---
- Subjective Encounter Date: 01/28/20 Encounter Time: 09:00 Subjective: Patient was seen and examined in bed. She was generally sedated and noncommunicative. No significant improvement in her general state - Objective Vital Signs & Weight: Vital Signs (12 hours) Temp Pulse Resp Pulse Ox 01/28/20 16:00 98.7 F 24 H 01/28/20 14:00 24 H 01/28/20 13:32 99 01/28/20 12:00 99.4 F 24 H 01/28/20 10:27 103 H 01/28/20 10:00 24 H 01/28/20 08:00 99.4 F 24 H 80 L 01/28/20 06:53 92 Weight Admit Weight 248 lb 9.6 oz Weight 248 lb 9.6 oz Most Recent Monitor Data Heart Rate from ECG 103 NIBP 125/61 NIBP BP-Mean 82 Respiration from ECG 10 SpO2 70 I&O: 01/27/20 01/28/20 01/29/20 06:59 06:59 06:59 Intake Total 3277 2748 100 Output Total 1695 1590 850 Balance 1582 1158 -750 Result Diagrams: 01/28/20 04:15 01/28/20 04:15 Hospitalist ROS - Medication Medications: Active Medications Generic Name Dose Route Start Last Admin Trade Name Freq PRN Reason Stop Dose Admin Ascorbic Acid 1,000 mg 01/17/20 09:00 01/28/20 09:26 Ascorbic Acid 500 Mg Chewable Tablet PO 1,000 mg DAILY JIM Administration Cholecalciferol 5,000 units 01/23/20 09:00 01/28/20 09:25 Cholecalciferol 1,000 Units (25 Mcg) Tab PER TUBE 5,000 units DAILY JIM Administration Dexamethasone 6 mg 01/28/20 08:45 01/28/20 15:12 Dexamethasone 4 Mg/Ml Vial SLOW IVP 6 mg Q6H JIM Administration Enoxaparin Sodium 80 mg 01/23/20 09:00 01/28/20 09:27 Enoxaparin Sodium 80 Mg/0.8 Ml Syringe SC 80 mg 09,2099 JIM Administration Guaifenesin/Dextromethorphan 15 ml 01/14/20 21:47 01/23/20 03:42 Guaifenesin Dm 100-10/5 Ml Udcup PO 15 ml Q4H PRN Administration Cough Fentanyl Citrate 2,000 mcg/ 100 mls @ 0 mls/hr 01/23/20 05:00 01/28/20 09:54 Sodium Chloride IV 02/22/20 05:00 100 mls INF JIM Administration Protocol Per Protocol Sodium Chloride 1,000 mls @ 75 mls/hr 01/28/20 08:45 01/28/20 09:59 1/2 Normal Saline IV 1,000 mls .[id number] JIM Administration Micafungin Sodium 100 mg/ 100 mls @ 100 mls/hr 01/28/20 08:45 01/28/20 10:39 Sodium Chloride IVPB 100 mls Q24H JIM Administration Cefepime HCl 1 gm/ Sodium 100 mls @ 200 mls/hr 01/28/20 09:00 01/28/20 09:57 Chloride IVPB 100 mls Q12HR JIM Administration Levothyroxine Sodium 125 mcg 01/16/20 06:00 01/28/20 05:37 Levothyroxine Sodium 125 Mcg Tab PO 125 mcg 0600 JIM Administration Lorazepam 2 mg 01/23/20 05:00 01/28/20 15:12 Lorazepam 2 Mg/Ml Vial SLOW IVP 02/22/20 05:00 2 mg Q1H PRN Administration Breakthrough agitation Pantoprazole Sodium 40 mg 01/23/20 09:00 01/28/20 09:28 Pantoprazole 40 Mg Vial IVP 40 mg DAILY JIM Administration Propofol 1,000 mg 01/23/20 05:00 01/28/20 15:11 Propofol 1,000 Mg/100 Ml Vial IV 02/22/20 05:00 1,000 mg INF PRN Administration TO ACHIEVE GOAL RASS Protocol Rocuronium [place] 100 mg 01/23/20 06:55 01/28/20 15:11 Rocuronium [place] 10 Mg/Ml (10ml Vial) IVP 100 mg Q1H PRN Administration Agitation Zinc Sulfate 220 mg 01/17/20 09:00 01/28/20 09:25 Zinc Sulfate 220 Mg Cap PO 220 mg DAILY JIM Administration - Exam General - other findings: In bed, intubated, nonresponsive. Heart: RRR, no murmur, no gallops Respiratory - other findings: Reduced air entry bilaterally. Psychiatric - other findings: Unable to assess Hosp A/P - Plan This is a 69-year-old female patient with a history of hypothyroidism, morbid obesity admitted on account of acute hypoxic respiratory failure secondary to Covid pneumonia. She was initially on BiPAP but deteriorated and required intubation and transferred to the ICU. She has not made significant improvements in spite of aggressive management. Prognosis is generally poor. No significant changes in her general status today. Acute hypoxic respiratory failure In the setting of Covid Continue ventilator support per pulmonology. Continue Covid management Appreciate pulmonology input. Pneumonia due to Covid Continue steroids and anticoagulation Completed remdesivir Continue monitoring. ID following. Hypertension Home BP medications as needed. Hypothyroidism Begin levothyroxine V. tach VT prophylaxisLovenox CODE STATUSDNR
[2020-01-29] MEDS: Propofol 1,000 MG/100 ML VIAL IV PRN ×5 (00:23→22:14)
[2020-01-29] MEDS: Sodium Chloride 0.45% 1,000 ML IV SCH ×2 (00:23→17:48)
[2020-01-29] MEDS: Dexamethasone 4 mg/ml Vial SLOW IVP SCH ×4 (02:40→20:58)
[2020-01-29] MEDS: Levothyroxine Sodium 125 MCG TAB PO SCH (04:45)
[2020-01-29 05:27] LABS: Anion Gap 12 mmol/L (10-20); BUN (Urea Nitrogen) 44 mg/dL (9.8-20.1); Calc. Creatinine Clearance 145 mL/min (70-130); Calcium 7.9 mg/dL (7.8-10.44); Carbon Dioxide 27 mmol/L (23-31); Chloride 106 mmol/L (98-107); Glucose 138 mg/dL (80-115); Potassium 5.2 mmol/L (3.5-5.1); Sodium 140 mmol/L (136-145)
[2020-01-29 05:29] LABS: ALT (SGPT) 271 U/L (8-55); AST (SGOT) 82 U/L (5-34); Albumin 2.5 g/dL (3.4-4.8); Alkaline Phosphatase 143 U/L (40-110); Bilirubin, Direct 0.4 mg/dL (0.1-0.3); Bilirubin, Total 0.5 mg/dL (0.2-1.2); Protein, Total 6.1 g/dL (6.0-8.3)
[2020-01-29 06:19] LABS: Band 13 % (5-11); Hemoglobin 9.8 g/dL (12.0-16.0); Lymphocytes 3 % (21-51); MDiff Complete? YES; Mean Corpuscular HGB CONC 31.5 g/dL (32.0-36.0); Mean Corpuscular Hemoglobin 32.1 pg (27.0-31.0); Mean Platelet Volume 8.6 fL (7.4-10.4); Monocytes 4 % (0-10); Myelocyte 1 % (0-0); Neutrophil 79 % (42-75); Platelet Count 250 thou/uL (130-400); RBC Distribution Width 13.8 % (11.5-14.5); Red Blood Cell (RBC) Count 3.06 mill/uL (4.20-5.40); White Blood Cell (WBC) Count 21.6 thou/uL (4.8-10.8)
[2020-01-29 07:12] LABS: Actual Bicarbonate (HCO3a) 26.9 mEq/L (22-28); Base Excess (BEa) 0.8 mEq/L (-2.0 to +3.0); CO2 Tension 50.2 mmHg (35.0-45.0); Calcium, Ionized (arterial) 1.14 mmol/L (1.12-1.30); Carboxyhemoglobin (COHb) 1.3 gm% (0.0-3.0); Hemoglobin (Hb) 10.5 g/dL (12.0-16.0); Potassium - ABG Lab 5.15 mmol/L (3.70-5.30); pH, Arterial 7.35 (7.35-7.45)
[2020-01-29 07:15] LABS: O2 Tension (PaO2), arterial 31.2 mmHg (> 80.0); Puncture Site LRA
--- NOTE | 2020-01-29 07:56 | RAD ---
Portable frontal chest radiograph: 01/29/2020 COMPARISON: 01/28/2020 HISTORY: Pneumonia FINDINGS: Stable endotracheal tube and nasogastric tube. Severe diffuse interstitial and alveolar opa city noted bilaterally with a perihilar/bibasilar predominance, left greater than right, not significantly changed. No pneumothorax. IMPRESSION: Extensive severe interstitial and alveolar opacity bilaterally, left greater than right, with apical sparing. Distribution and severity of disease is not significantly changed when compared to the 01/28/2020 exam.
--- NOTE | 2020-01-29 08:32 | PRG ---
DATE OF SERVICE: 01/29/2020 35 minutes of critical care time. SUBJECTIVE: The patient has continued to do quite poorly. Her is at the bedside. I spoke at length with him about her condition. OBJECTIVE: VITAL SIGNS: Her temperature 97.9, pulse 80, blood pressure 115/59, O2 saturation 78%, total intake for 24 hours 3416, output 2015. HEENT: Unchanged. NECK: No JVD. LUNGS: Coarse breath sounds. CARDIOVASCULAR: S1 and S2. Regular. ABDOMEN: Soft and obese. EXTREMITIES: Edematous. LABORATORY DATA: White blood cell count 21.6, hematocrit 31.2, and platelet count 250. D-dimer is 3.1. PH of 7.35, pCO2 of 50, pO2 of 31 with SaO2 of 60% on assist control, rate 24, inspiratory pressure 25 with approximate tidal volume . Sodium 140, potassium 5.2, chloride 106, CO2 of 27, BUN 44, creatinine 0.6, glucose 138, ferritin 2393. C-reactive protein 10. X-ray continued to show diffuse bilateral infiltrates. ASSESSMENT: 1. Acute hypoxic respiratory failure requiring mechanical ventilation. 2. COVID-19 pneumonia. 3. Continued elevation of inflammatory markers. 4. Increasing potassium. PLAN: I do not think there is any hope of survival. We are seeing worsening of her condition despite aggressive treatment. I think the family is trying to hold out until Monday when the patient can come out of isolation, thus freeing up visitation for her children. I have reviewed her medication regimen. I do not see anything to change at this time. I did find the patient's is very realistic as to her outcome. Job ID: [id number]
[2020-01-29] MEDS: Micafungin 100 MG in Sodium Chloride 0.9% 100 ML IVPB SCH (08:43)
[2020-01-29] MEDS: Cefepime 1 GM in Sodium Chloride 0.9% 100 ML IVPB SCH ×2 (08:43→20:56)
[2020-01-29] MEDS: Enoxaparin Sodium 80 MG/0.8 ML SYRINGE SC SCH ×2 (08:43→20:53)
[2020-01-29] MEDS: Ascorbic Acid 500 mg Chewable Tablet PO SCH (08:44)
[2020-01-29] MEDS: Zinc Sulfate 220 MG CAP PO SCH (08:44)
[2020-01-29] MEDS: Cholecalciferol 1,000 UNITS (25 MCG) TAB PER TUBE SCH (08:44)
[2020-01-29] MEDS: Pantoprazole 40 MG VIAL IVP SCH (08:44)
[2020-01-29] MEDS: fentaNYL Citrate/PF 2,000 MCG in Sodium Chloride 0.9% 60 ML IV SCH (11:59)
--- NOTE | 2020-01-29 17:25 | PDOC.HOSPP ---
- Subjective Encounter Date: 01/29/20 Encounter Time: 14:00 Subjective: I did not physically examine the patient today. I spoke to the nurse and reviewed the chart. She has not made any significant improvement. She was seen earlier by pulmonology. Family plans to wait till her contact precautions are over so they could see her prior to possible extubation in 2 days time. General prognosis is poor - Objective Vital Signs & Weight: Vital Signs (12 hours) Temp Pulse Resp Pulse Ox 01/29/20 14:34 100 01/29/20 14:00 28 H 01/29/20 12:00 98.9 F 26 H 01/29/20 11:03 96 01/29/20 10:00 30 H 01/29/20 08:00 98.1 F 24 H 76 L 01/29/20 07:07 88 01/29/20 06:00 24 H 01/29/20 04:00 97.9 F 24 H Weight Admit Weight 248 lb 9.6 oz Weight 248 lb 9.6 oz Most Recent Monitor Data Heart Rate from ECG 105 NIBP 146/59 NIBP BP-Mean 88 Respiration from ECG 28 SpO2 71 I&O: 01/28/20 01/29/20 01/30/20 06:59 06:59 06:59 Intake Total 2748 3416 Output Total 1590 2015 700 Balance 1158 1401 -700 Result Diagrams: 01/29/20 04:45 01/29/20 04:45 Hospitalist ROS - Medication Medications: Active Medications Generic Name Dose Route Start Last Admin Trade Name Freq PRN Reason Stop Dose Admin Ascorbic Acid 1,000 mg 01/17/20 09:00 01/29/20 08:44 Ascorbic Acid 500 Mg Chewable Tablet PO 1,000 mg DAILY JIM Administration Cholecalciferol 5,000 units 01/23/20 09:00 01/29/20 08:44 Cholecalciferol 1,000 Units (25 Mcg) Tab PER TUBE 5,000 units DAILY JIM Administration Dexamethasone 6 mg 01/28/20 08:45 01/29/20 08:43 Dexamethasone 4 Mg/Ml Vial SLOW IVP 6 mg Q6H JIM Administration Enoxaparin Sodium 80 mg 01/23/20 09:00 01/29/20 08:43 Enoxaparin Sodium 80 Mg/0.8 Ml Syringe SC 80 mg 899,2099 JIM Administration Guaifenesin/Dextromethorphan 15 ml 01/14/20 21:47 01/23/20 03:42 Guaifenesin Dm 100-10/5 Ml Udcup PO 15 ml Q4H PRN Administration Cough Fentanyl Citrate 2,000 mcg/ 100 mls @ 0 mls/hr 01/23/20 05:00 01/29/20 11:59 Sodium Chloride IV 02/22/20 05:00 100 mls INF JIM Administration Protocol Per Protocol Sodium Chloride 1,000 mls @ 75 mls/hr 01/28/20 08:45 01/29/20 00:23 1/2 Normal Saline IV 1,000 mls .[id number] JIM Administration Micafungin Sodium 100 mg/ 100 mls @ 100 mls/hr 01/28/20 08:45 01/29/20 08:43 Sodium Chloride IVPB 100 mls Q24H JIM Administration Cefepime HCl 1 gm/ Sodium 100 mls @ 200 mls/hr 01/28/20 09:00 01/29/20 08:43 Chloride IVPB 100 mls Q12HR JIM Administration Levothyroxine Sodium 125 mcg 01/16/20 06:00 01/29/20 04:45 Levothyroxine Sodium 125 Mcg Tab PO 125 mcg 0600 JIM Administration Lorazepam 2 mg 01/23/20 05:00 01/28/20 15:12 Lorazepam 2 Mg/Ml Vial SLOW IVP 02/22/20 05:00 2 mg Q1H PRN Administration Breakthrough agitation Propofol 1,000 mg 01/23/20 05:00 01/29/20 09:53 Propofol 1,000 Mg/100 Ml Vial IV 02/22/20 05:00 1,000 mg INF PRN Administration TO ACHIEVE GOAL RASS Protocol Rocuronium [place] 100 mg 01/23/20 06:55 01/28/20 15:11 Rocuronium [place] 10 Mg/Ml (10ml Vial) IVP 100 mg Q1H PRN Administration Agitation Zinc Sulfate 220 mg 01/17/20 09:00 01/29/20 08:44 Zinc Sulfate 220 Mg Cap PO 220 mg DAILY JIM Administration Hosp A/P - Plan This is a 69-year-old female patient with a history of hypothyroidism, morbid obesity admitted on account of acute hypoxic respiratory failure secondary to Covid pneumonia. She was initially on BiPAP but deteriorated and required intubation and transferred to the ICU. She has not made significant improvements in spite of aggressive management. Prognosis is generally poor. No significant changes in her general status today. Acute hypoxic respiratory failure In the setting of Covid Continue ventilator support per pulmonology. Continue Covid management Appreciate pulmonology input. Pneumonia due to Covid Continue steroids and anticoagulation Completed remdesivir Continue monitoring. ID following. Hypertension Home BP medications as needed. Hypothyroidism Begin levothyroxine V. tach Poor clinical state. Patient has not made any progress in spite of intensive management. Plan is to redraw support in the coming days by family Palliative care is on board VT prophylaxisLovenox CODE STATUSDNR Disposition
[2020-01-30] MEDS: fentaNYL Citrate/PF 2,000 MCG in Sodium Chloride 0.9% 60 ML IV SCH ×2 (01:30→14:22)
[2020-01-30] MEDS: Sodium Chloride 0.45% 1,000 ML IV SCH ×3 (01:42→17:14)
[2020-01-30] MEDS: Dexamethasone 4 mg/ml Vial SLOW IVP SCH ×4 (02:57→20:08)
[2020-01-30] MEDS: Propofol 1,000 MG/100 ML VIAL IV PRN ×6 (02:58→20:48)
[2020-01-30 04:04] LABS: Anion Gap 13 mmol/L (10-20); BUN (Urea Nitrogen) 60 mg/dL (9.8-20.1); Calc. Creatinine Clearance 120 mL/min (70-130); Carbon Dioxide 26 mmol/L (23-31); Chloride 105 mmol/L (98-107); Potassium 5.6 mmol/L (3.5-5.1); Sodium 138 mmol/L (136-145)
[2020-01-30 04:05] LABS: ALT (SGPT) 266 U/L (8-55); AST (SGOT) 76 U/L (5-34); Albumin 2.4 g/dL (3.4-4.8); Alkaline Phosphatase 157 U/L (40-110); Bilirubin, Direct 0.4 mg/dL (0.1-0.3); Bilirubin, Total 0.5 mg/dL (0.2-1.2); Calcium 7.7 mg/dL (7.8-10.44); Glucose 144 mg/dL (80-115); Protein, Total 6.1 g/dL (6.0-8.3)
[2020-01-30 04:37] LABS: Band 4 % (5-11); Hemoglobin 9.7 g/dL (12.0-16.0); Lymphocytes 8 % (21-51); MDiff Complete? YES; Mean Corpuscular HGB CONC 33.1 g/dL (32.0-36.0); Mean Corpuscular Hemoglobin 33.2 pg (27.0-31.0); Mean Platelet Volume 8.7 fL (7.4-10.4); Metamyelocyte 1 % (0-0); Monocytes 3 % (0-10); Myelocyte 2 % (0-0); Neutrophil 82 % (42-75); Nucleated RBC 9 % (0); Platelet Count 263 thou/uL (130-400); Polychromasia SLIGHT = 2-3 cells (100X) (0-2/hpf); RBC Distribution Width 14.3 % (11.5-14.5); Red Blood Cell (RBC) Count 2.92 mill/uL (4.20-5.40); White Blood Cell (WBC) Count 20.9 thou/uL (4.8-10.8)
[2020-01-30] MEDS: Levothyroxine Sodium 125 MCG TAB PO SCH (05:53)
--- NOTE | 2020-01-30 07:57 | RAD ---
EXAM: CHEST ONE VIEW HISTORY: Pneumonia. Follow-up evaluation. COMPARISON: 01/29/2020 FINDINGS: Endotracheal tube and nasogastric tube remain in place. Again noted are extensive interstitial and al veolar opacities seen within the lungs bilaterally more diffusely on the left involving the right midlung zone and right lung base in a similar pattern and distribution compared to prior exam. No sig nificant interval change from prior exam. IMPRESSION: Extensive interstitial and alveolar opacities bilaterally suggesting atypical infectious process/Covi d pneumonia.
[2020-01-30] MEDS: Cefepime 1 GM in Sodium Chloride 0.9% 100 ML IVPB SCH ×2 (08:11→20:08)
[2020-01-30] MEDS: Enoxaparin Sodium 80 MG/0.8 ML SYRINGE SC SCH ×2 (08:12→20:09)
[2020-01-30] MEDS: Zinc Sulfate 220 MG CAP PO SCH (08:12)
[2020-01-30] MEDS: Ascorbic Acid 500 mg Chewable Tablet PO SCH (08:12)
[2020-01-30] MEDS: Pantoprazole 40 MG GRANULES PACKET PER TUBE SCH (08:12)
[2020-01-30] MEDS: Cholecalciferol 1,000 UNITS (25 MCG) TAB PER TUBE SCH (08:13)
[2020-01-30] MEDS ORDERED: Insulin Glargine 5 UNITS in Pre-Filled Syringe 1 EACH SC SCH (09:00)
--- NOTE | 2020-01-30 09:25 | PRG ---
DATE OF SERVICE: 01/30/2020 30-minutes critical time. SUBJECTIVE: Ms. Lim has continued to worsen despite aggressive treatment. OBJECTIVE: VITAL SIGNS: Temperature 98.8, pulse 94, O2 saturation 53%, blood pressure 85/58. She is currently on assist-control ventilation rate 24, inspiratory pressure of 25, tidal volumes , FiO2 100%, 12 of PEEP. HEENT: Unremarkable. NECK: No JVD. LUNGS: Coarse breath sounds. CARDIAC: S1, S2. Regular. ABDOMEN: Soft. EXTREMITIES: No edema. LABORATORY AND DIAGNOSTIC DATA: White blood cell count 20, hematocrit 29.3, and platelet count 263. Sodium 138, potassium 5.6, chloride 105, CO2 of 26, BUN 60, creatinine 0.8, glucose 144. Ferritin 2163. X-ray continues to show bilateral diffuse infiltrates. ASSESSMENT: COVID-19 pneumonia with progressive respiratory failure, which has been unresponsive to treatment. PLAN: I fully expect this patient will succumb shortly. Family has been informed there is nothing else we can do. I believe we can stop her x-rays and labs as we do not plan on acting on any of these. I again expect family to withdrawal care tomorrow. Job ID: [id number]
[2020-01-30] MEDS: Micafungin 100 MG in Sodium Chloride 0.9% 100 ML IVPB SCH (10:54)
--- NOTE | 2020-01-30 16:58 | PDOC.HOSPP ---
- Subjective Encounter Date: 01/30/20 Encounter Time: 14:00 Subjective: F/u: COVID The patient is intubated. She is hypotensive with saturations 60%. Family has decided to continue supportive care and no extubation since they can't come to an agreement on hospice. Per nurse, the patient does not follow a ny commands - Objective Vital Signs & Weight: Vital Signs (12 hours) Temp Pulse Resp BP Pulse Ox 01/30/20 16:00 24 H 01/30/20 15:12 103 H 99/58 L 01/30/20 14:00 25 H 01/30/20 11:47 26 H 01/30/20 11:46 98.7 F 01/30/20 11:27 97 166/67 H 01/30/20 10:00 26 H 01/30/20 08:00 98.4 F 27 H 74 L 01/30/20 06:39 97 81/47 L 01/30/20 06:00 26 H Weight Admit Weight 248 lb 9.6 oz Weight 248 lb 9.6 oz Most Recent Monitor Data Heart Rate from ECG 101 NIBP 139/76 NIBP BP-Mean 97 Respiration from ECG 23 SpO2 65 I&O: 01/29/20 01/30/20 01/31/20 06:59 06:59 06:59 Intake Total 3416 3919 410 Output Total 20145 115 Balance 1401 2514 295 Result Diagrams: 01/30/20 03:00 01/30/20 03:00 Hospitalist ROS - Review of Systems Constitutional: denies: fever, chills - Medication Medications: Active Medications Generic Name Dose Route Start Last Admin Trade Name Kristyn PRN Reason Stop Dose Admin Acetaminophen 650 mg 01/14/20 21:47 01/30/20 02:57 Acetaminophen 325 Mg Tab PO 650 mg Q4H PRN Administration Headache/Fever/Mild Pain (1-3) Ascorbic Acid 1,000 mg 01/17/20 09:00 01/30/20 08:12 Ascorbic Acid 500 Mg Chewable Tablet PO 1,000 mg DAILY JIM Administration Cholecalciferol 5,000 units 01/23/20 09:00 01/30/20 08:13 Cholecalciferol 1,000 Units (25 Mcg) Tab PER TUBE 5,000 units DAILY JIM Administration Dexamethasone 6 mg 01/28/20 08:45 01/30/20 14:21 Dexamethasone 4 Mg/Ml Vial SLOW IVP 6 mg Q6H JIM Administration Enoxaparin Sodium 80 mg 01/23/20 09:00 01/30/20 08:12 Enoxaparin Sodium 80 Mg/0.8 Ml Syringe SC 80 mg 0900,2100 JIM Administration Guaifenesin/Dextromethorphan 15 ml 01/14/20 21:47 01/23/20 03:42 Guaifenesin Dm 100-10/5 Ml Udcup PO 15 ml Q4H PRN Administration Cough Fentanyl Citrate 2,000 mcg/ 100 mls @ 0 mls/hr 01/23/20 05:00 01/30/20 14:22 Sodium Chloride IV 02/22/20 05:00 100 mls INF JIM Administration Protocol Per Protocol Sodium Chloride 1,000 mls @ 75 mls/hr 01/28/20 08:45 01/30/20 05:56 1/2 Normal Saline IV 1,000 mls .[id number] JIM Administration Micafungin Sodium 100 mg/ 100 mls @ 100 mls/hr 01/28/20 08:45 01/30/20 10:54 Sodium Chloride IVPB 100 mls Q24H JIM Administration Cefepime HCl 1 gm/ Sodium 100 mls @ 200 mls/hr 01/28/20 09:00 01/30/20 08:11 Chloride IVPB 100 mls Q12HR JIM Administration Levothyroxine Sodium 125 mcg 01/16/20 06:00 01/30/20 05:53 Levothyroxine Sodium 125 Mcg Tab PO 125 mcg 0600 JIM Administration Lorazepam 2 mg 01/23/20 05:00 01/28/20 15:12 Lorazepam 2 Mg/Ml Vial SLOW IVP 02/22/20 05:00 2 mg Q1H PRN Administration Breakthrough agitation Pantoprazole Sodium 40 mg 01/30/20 09:00 01/30/20 08:12 Pantoprazole 40 Mg Granules Packet PER TUBE 40 mg DAILY JIM Administration Propofol 1,000 mg 01/23/20 05:00 01/30/20 14:22 Propofol 1,000 Mg/100 Ml Vial IV 02/22/20 05:00 1,000 mg INF PRN Administration TO ACHIEVE GOAL RASS Protocol Rocuronium [place] 100 mg 01/23/20 06:55 12/08/20 15:11 Rocuronium [place] 10 Mg/Ml (10ml Vial) IVP 100 mg Q1H PRN Administration Agitation Zinc Sulfate 220 mg 01/17/20 09:00 01/30/20 08:12 Zinc Sulfate 220 Mg Cap PO 220 mg DAILY JIM Administration - Exam General - other findings: intubated, sedated ENT: normocephalic atraumatic, no oropharyngeal lesions Neck: no JVD Heart: RRR, no murmur, no gallops, no rubs Heart - other findings: shallow breathing Respiratory - other findings: diminished breath sounds Gastrointestinal: soft, non-distended Extremities: no cyanosis, no edema Skin: normal turgor, no lesions, no rashes Neurological: cranial nerve grossly intact, normal sensation to touch, no weakness Neurological - other findings: does not follow commands Musculoskeletal: normal tone, normal strength, no muscle wasting Psychiatric: normal affect, normal behavior, A&O x 3 Hosp A/P - Plan CTA chest: severe extensive bilateral groundglass opacity consistent with bilateral COVID pneumonia. Chest x ray 01/29: extensive interstitial and alveolar opacities This is a 69 year old female who presented with oxygen sat in the 80's and Vtach . =The patient required BIPAP and ended up intubated on 01/22 Acute hypoxic respiratory failure secondary to COVID - still intubated, she is now hypotensive and has sats in the 60's. She is on FIO2 100% - continue IV cefepime, therapeutic lovenox and dexamethasone - s/p 5 days of remdesivir and convalescent plasma Transaminitis - likely from hypotension - started IV fluids, they are downtrending Hyperkalemia - potassium 5.6, started fluids this morning, will repeat BMP to see if this has resolved Macrocytic anemia -Hb 10, stable, will monitor Disposition: Poor prognosis, likely imminent
[2020-01-30 19:30] LABS: ALT (SGPT) 405 U/L (8-55); AST (SGOT) 139 U/L (5-34); Albumin 2.7 g/dL (3.4-4.8); Alkaline Phosphatase 177 U/L (40-110); Anion Gap 16 mmol/L (10-20); BUN (Urea Nitrogen) 84 mg/dL (9.8-20.1); Bilirubin, Total 0.7 mg/dL (0.2-1.2); Calc. Creatinine Clearance 71 mL/min (70-130); Calcium 7.5 mg/dL (7.8-10.44); Carbon Dioxide 23 mmol/L (23-31); Chloride 103 mmol/L (98-107); Glucose 163 mg/dL (80-115); Potassium 6.1 mmol/L (3.5-5.1); Protein, Total 6.7 g/dL (6.0-8.3); Sodium 136 mmol/L (136-145)
[2020-01-30] MEDS ORDERED: Dextrose 50% Abboject 50 ML SYRINGE SLOW IVP SCH (23:15)
[2020-01-30] MEDS ORDERED: Insulin Regular 300 UNITS/3 ML VIAL IVP SCH (23:15)
[2020-01-31] MEDS: Rocuronium Bromide 10 MG/ML (10ML VIAL) IVP PRN (00:33)
[2020-01-31 03:18] VITALS: BP 90/52
[2020-01-31] MEDS: Dexamethasone 4 mg/ml Vial SLOW IVP SCH ×3 (03:18→17:24)
[2020-01-31] MEDS: fentaNYL Citrate/PF 2,000 MCG in Sodium Chloride 0.9% 60 ML IV SCH (04:05)
[2020-01-31] MEDS: Sodium Chloride 0.45% 1,000 ML IV SCH (05:09)
[2020-01-31] MEDS: Levothyroxine Sodium 125 MCG TAB PO SCH (05:12)
[2020-01-31 08:48] LABS: ALT (SGPT) 437 U/L (8-55); AST (SGOT) 152 U/L (5-34); Albumin 2.5 g/dL (3.4-4.8); Alkaline Phosphatase 164 U/L (40-110); Anion Gap 17 mmol/L (10-20); BUN (Urea Nitrogen) 104 mg/dL (9.8-20.1); Bilirubin, Total 0.8 mg/dL (0.2-1.2); Calc. Creatinine Clearance 68 mL/min (70-130); Calcium 7.7 mg/dL (7.8-10.44); Carbon Dioxide 16 mmol/L (23-31); Chloride 104 mmol/L (98-107); Globulin 3.9 g/dL (2.4-3.5); Glucose 139 mg/dL (80-115); Potassium 6.2 mmol/L (3.5-5.1); Protein, Total 6.4 g/dL (6.0-8.3); Sodium 131 mmol/L (136-145)
--- NOTE | 2020-01-31 09:25 | PRG ---
DATE OF SERVICE: 01/31/2020 SUBJECTIVE: The patient remains in the ICU, on mechanical ventilation. There have been no acute changes. It was my impression that the family would be withdrawing care today, but apparently the sons have been difficult about this. They are asking whether or not a non-approved drug for COVID, called Ivermectin would be affective in this situation. PHYSICAL EXAMINATION: VITAL SIGNS: Her heart rate 94, blood pressure 82/46, O2 saturation 66 per minute, respiratory rate 24. She is nonresponsive to me, but does have spontaneous respirations. NECK: Without JVD. LUNGS: Coarse breath sounds. CARDIAC: S1 and S2. Regular. ABDOMEN: Soft. EXTREMITIES: Edematous. ASSESSMENT: Coronavirus disease 2019 pneumonia with progressive hypoxic respiratory failure with no improvement despite maximum support. RECOMMENDATIONS: Ivermectin really would have no role in helping the lady in this situation. 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 I recommend stopping therapy and extubating this patient and keeping her comfortable. Job ID: [id number]
[2020-01-31] MEDS: Cefepime 1 GM in Sodium Chloride 0.9% 100 ML IVPB SCH (09:59)
[2020-01-31] MEDS: Enoxaparin Sodium 80 MG/0.8 ML SYRINGE SC SCH (10:00)
[2020-01-31] MEDS: Zinc Sulfate 220 MG CAP PO SCH (10:02)
[2020-01-31] MEDS: Pantoprazole 40 MG GRANULES PACKET PER TUBE SCH (10:02)
[2020-01-31] MEDS: Ascorbic Acid 500 mg Chewable Tablet PO SCH (10:02)
[2020-01-31] MEDS: Cholecalciferol 1,000 UNITS (25 MCG) TAB PER TUBE SCH (10:04)
[2020-01-31] MEDS: Micafungin 100 MG in Sodium Chloride 0.9% 100 ML IVPB SCH (10:20)
--- NOTE | 2020-01-31 13:58 | PDOC.PALPN ---
Palliative Progress Note - Subjective Intubated, mechanical ventilation. Poor o2 saturation and hypotensive. - Objective Vital Signs: Vital Signs - Most Recent Temp Pulse Resp BP Pulse Ox 99.0 F 95 20 90/52 L 71 L 01/31/20 08:00 01/31/20 13:11 01/31/20 10:00 01/31/20 03:17 01/31/20 08:00 - Physical Exam Constitutional: ill appearing HEENT: moist MMs Respiratory: diminished lung sound Deviation from normal: bilaterally coarse Cardiovascular: RRR, diminished peripheral pulses Gastrointestinal: soft, non-tender Genitourinary: hartmann catheter Musculoskeletal: edema present, diffuse muscle atrophy Skin: cap refill <2 seconds Deviation from normal: encephalopathic - Assessment (1) Palliative care encounter Code(s): Z51.5 - ENCOUNTER FOR PALLIATIVE CARE Current Visit: Yes Status: Acute (2) HTN (hypertension) Code(s): I10 - ESSENTIAL (PRIMARY) HYPERTENSION Current Visit: Yes Status: Acute (3) Morbidly obese Code(s): E66.01 - MORBID (SEVERE) OBESITY DUE TO EXCESS CALORIES Current Visit: Yes Status: Acute (4) Pneumonia due to COVID-19 virus Code(s): U07.1 - COVID-19; J12.89 - OTHER VIRAL PNEUMONIA Current Visit: Yes Status: Acute - Plan Plan: Palliative care RN has had multiple conversations with patient and patient children. to bedside. He desires to allow his to transition to hospice with comfort measures. However, he is the step father for the five children of the patient, and only two of the five are in agreement with transition of care to comfort under hospice. Patient sister is coming to bedside today. He is hopeful that she can assist the children of the patient to come together in a unified decision. Emotional support offered. Spiritual care, Jos Martin to bedside to provide support [40] minutes spent on this encounter with >50% of the time in counseling and coordination of care. - ROS Non Response: due to endotracheal tube, due to mental status
--- NOTE | 2020-01-31 15:14 | PDOC.HOSPP ---
- Subjective Encounter Date: 01/31/20 Encounter Time: 11:30 Subjective: F/u: COVID Patient is still intubated. She is on FiO2 of 100% saturating 70% on the ventilator. I spoke with her and sister. They want to continue with supportive care and did not want to extubate because of difficulty with family coming to in agreement with regards to terminal extubation. Patient does not follow any commands. No other family members are planning on visiting - Objective Vital Signs & Weight: Vital Signs (12 hours) Temp Pulse Resp BP Pulse Ox 01/31/20 13:11 95 01/31/20 10:15 89 01/31/20 10:00 20 01/31/20 08:00 99.0 F 25 H 71 L 01/31/20 06:00 24 H 01/31/20 04:00 98.3 F 24 H 01/31/20 03:17 98 90/52 L Weight Admit Weight 248 lb 9.6 oz Weight 248 lb 9.6 oz Most Recent Monitor Data Heart Rate from ECG 90 NIBP 87/45 NIBP BP-Mean 59 Respiration from ECG 25 SpO2 73 I&O: 01/30/20 01/31/20 02/01/20 06:59 06:59 06:59 Intake Total 3919 3836 Output Total 1405 540 70 Balance 2514 3296 -70 Result Diagrams: 01/30/20 03:00 01/31/20 08:01 Hospitalist ROS - Review of Systems Constitutional: denies: fever, chills - Medication Medications: Active Medications Generic Name Dose Route Start Last Admin Trade Name Freq PRN Reason Stop Dose Admin Acetaminophen 650 mg 01/14/20 21:47 01/30/20 02:57 Acetaminophen 325 Mg Tab PO 650 mg Q4H PRN Administration Headache/Fever/Mild Pain (1-3) Ascorbic Acid 1,000 mg 01/17/20 09:00 01/31/20 10:02 Ascorbic Acid 500 Mg Chewable Tablet PO 1,000 mg DAILY JIM Administration Cholecalciferol 5,000 units 01/23/20 09:00 01/31/20 10:04 Cholecalciferol 1,000 Units (25 Mcg) Tab PER TUBE 5,000 units DAILY JIM Administration Dexamethasone 6 mg 01/28/20 08:45 01/31/20 10:01 Dexamethasone 4 Mg/Ml Vial SLOW IVP 6 mg Q6H JIM Administration Enoxaparin Sodium 80 mg 01/23/20 09:00 01/31/20 10:00 Enoxaparin Sodium 80 Mg/0.8 Ml Syringe SC 80 mg 09,2100 JIM Administration Guaifenesin/Dextromethorphan 15 ml 01/14/20 21:47 01/23/20 03:42 Guaifenesin Dm 100-10/5 Ml Udcup PO 15 ml Q4H PRN Administration Cough Fentanyl Citrate 2,000 mcg/ 100 mls @ 0 mls/hr 01/23/20 05:00 01/31/20 04:05 Sodium Chloride IV 02/22/20 05:00 100 mls INF JIM Administration Protocol Per Protocol Sodium Chloride 1,000 mls @ 75 mls/hr 01/28/20 08:45 01/31/20 05:09 1/2 Normal Saline IV Not Given .[id number] JIM Micafungin Sodium 100 mg/ 100 mls @ 100 mls/hr 01/28/20 08:45 01/31/20 10:20 Sodium Chloride IVPB 100 mls Q24H JIM Administration Cefepime HCl 1 gm/ Sodium 100 mls @ 200 mls/hr 01/28/20 09:00 01/31/20 09:59 Chloride IVPB 100 mls Q12HR JIM Administration Levothyroxine Sodium 125 mcg 01/16/20 06:00 01/31/20 05:12 Levothyroxine Sodium 125 Mcg Tab PO 125 mcg 0600 JIM Administration Lorazepam 2 mg 01/23/20 05:00 01/28/20 15:12 Lorazepam 2 Mg/Ml Vial SLOW IVP 02/22/20 05:00 2 mg Q1H PRN Administration Breakthrough agitation Pantoprazole Sodium 40 mg 01/30/20 09:00 01/31/20 10:02 Pantoprazole 40 Mg Granules Packet PER TUBE 40 mg DAILY JIM Administration Propofol 1,000 mg 01/23/20 05:00 01/30/20 20:48 Propofol 1,000 Mg/100 Ml Vial IV 02/22/20 05:00 1,000 mg INF PRN Administration TO ACHIEVE GOAL RASS Protocol Rocuronium [place] 100 mg 01/23/20 06:55 01/31/20 00:33 Rocuronium [place] 10 Mg/Ml (10ml Vial) IVP 100 mg Q1H PRN Administration Agitation Zinc Sulfate 220 mg 01/17/20 09:00 01/31/20 10:02 Zinc Sulfate 220 Mg Cap PO 220 mg DAILY JIM Administration - Exam General - other findings: Intubated Eye: PERRL, anicteric sclera ENT: normocephalic atraumatic, no oropharyngeal lesions Neck: no JVD Heart: RRR, no murmur, no gallops, no rubs Respiratory - other findings: decreased breath sounds bilaterally Gastrointestinal: soft, non-tender, non-distended, normal bowel sounds Extremities: no cyanosis, no clubbing, no edema Hosp A/P - Plan CTA chest: severe extensive bilateral groundglass opacity consistent with bilateral COVID pneumonia. Chest x ray 01/29: extensive interstitial and alveolar opacities This is a 69 year old female who presented with oxygen sat in the 80's and Vtach . =The patient required BIPAP and ended up intubated on 01/22 #Acute hypoxic respiratory failure secondary to COVID - still intubated, she is still hypotensive and has sats in the 70's. She is on FIO2 100%. Sp 5 days of remdesivir and convalescent plasma - continue IV cefepime, therapeutic lovenox and dexamethasone. White blood cell count is still 20. Will repeat CBC today #Transaminitis -Worsening likely from hypotension -Continue IV fluid #Acute kidney injury -likely secondary to ATN #Hyperkalemia - worsening - potassium is increased to 6.2. Ordered another insulin and dextrose and repeat BMP at 6 PM -Check UA, urine sodium and urine creatinine Macrocytic anemia -Hb 10, stable, will monitor Disposition: Poor prognosis, likely imminent
[2020-01-31 15:43] VITALS: TEMP 99.4
[2020-01-31] MEDS ORDERED: Hyoscyamine Sulfate SL 0.125 mg Tablet PO PRN (16:30)
[2020-01-31] MEDS: Lorazepam 2 MG/ML VIAL SLOW IVP PRN (16:43)
[2020-01-31] MEDS ORDERED: Morphine 4 MG/ML VIAL SLOW IVP PRN (16:58)
[2020-01-31] MEDS ORDERED: Morphine 4 MG/ML VIAL ONE (16:58)
[2020-01-31] MEDS ORDERED: Lorazepam 2 MG/ML VIAL SLOW IVP PRN (16:59)
[2020-01-31] MEDS ORDERED: Scopolamine 1.5 mg/72 hour Patch TD SCH (17:00)
--- NOTE | 2020-01-31 17:03 | PDOC.FMACP ---
Advance Care Planning - Problem (1) Palliative care encounter Status: Acute Code(s): Z51.5 - ENCOUNTER FOR PALLIATIVE CARE (2) HTN (hypertension) Status: Acute Code(s): I10 - ESSENTIAL (PRIMARY) HYPERTENSION (3) Morbidly obese Status: Acute Code(s): E66.01 - MORBID (SEVERE) OBESITY DUE TO EXCESS CALORIES (4) Pneumonia due to COVID-19 virus Status: Acute Code(s): U07.1 - COVID-19; J12.89 - OTHER VIRAL PNEUMONIA - Note Participants: family, palliative care Summary: Revisited Advanced Care Planning with patient , sister, and son. The diagnosis, prognosis and goals of care were discussed. Appropriate forms and documentation to accomplish the goals of care were discussed. All questions were answered. Family has elected to withdraw care secondary to poor prognosis. Comfort medications ordered Dr Elaine and Dr Encinas aware Hospice presented to family, they declined to have hospice care at end of life. Time Spent (mins): 45
--- NOTE | 2020-01-31 19:41 | PDOC.DS.DS ---
Provider - Provider Date of Admission: 01/14/20 19:04 Date of Discharge: 01/31/20 Admitting Provider: Dionicio Eaton Consultations: Cardiology (Dr. George Silva), Pulmonary Primary Care Physician: OUT OF TOWN Course - Hospital Course Hospital Course: Discharge diagnoses: 1. Acute hypoxic respiratory failure secondary to Covid pneumonia 2. Transaminitis 3. Acute kidney injury 4. Hyperkalemia 5. Anemia 6. Hyponatremia Brief HPI: This is a 69-year-old female with a past medical history of hypothyroidism who presented from [facility] with cough, shortness of breath that had been progressing. Her O2 saturation was in the low 80s and she had some episodes of V. tach on telemetry so she is admitted for further work-up. CT of her chest showed bilateral Covid pneumonia. Patient was started on ceftriaxone and azithromycin and admitted for further work-up. Hospital course: #Acute hypoxic respiratory failure secondary to COVID: Patient was initially started on IV dexamethasone. She received convalescent plasma on 5 days of remdesivir. She was initially placed on BiPAP however desaturated on 01/22 and ended up being intubated. Her white blood cell count slowly increased to 21. She was started on IV cefepime and micafungin on 01/27 due to no significant improvement. Her white blood cell count improved marginally and came down to 20. However her respiratory failure progressed and her saturations were still 70% on 100% FiO2. She was also hypotensive and started on IV fluid. Palliative care was consulted. After prolonged discussion, the family members decided to terminally extubate the patient. Patient was pronounced at 17:16 #GAYATHRI #Hyperkalemia #Transaminitis: Patient's LFTs continue to increase her creatinine continued to increase. Her potassium also increased to 6. She was started on IV fluids. She was treated multiple times with insulin and dextrose with no significant improvement in her potassium. Her blood pressure was not high enough for any renal replacement therapy. Pertinent Studies: CTA chest 01/13: Severe extensive bilateral groundglass opacity/airspace disease consistent with extensive bilateral Covid pneumonia. Parenchymal opacities appear to have worsened. Chest X ray 01/29: Dense of interstitial and alveolar opacities consistent with Covid pneumonia Resuscitation Status: 01/25/20 13:32 Resuscitation Status Routine Resuscitation Status: DNAR: NO Resuscitation Discussed with: Discussed with patient's and son Antony Additional comments: Second nurse Sara Webster verfied by phone. Dr. Velazquez notified - Labs Lab Results: 01/30/20 03:00 01/31/20 08:01 Abnormal Lab Results - Last 48 hrs 01/30/20 03:00: Potassium 5.6 H, BUN 60 H, Calcium 7.7 L 01/30/20 03:00: C-Reactive Protein 7.45 H 01/30/20 03:00: D-Dimer 3.87 H 01/30/20 03:00: Ferritin 2163.55 H 01/30/20 03:00: Direct Bilirubin 0.4 H, AST 76 H, ALT 266 H, Alkaline Phosphatase 157 H, Albumin 2.4 L 01/30/20 03:00: WBC 20.9 H, RBC 2.92 L, Hgb 9.7 L, Hct 29.3 L, MCV 101.0 H, MCH 33.2 H, Neutrophils % (Manual) 82 H, Band Neuts % (Manual) 4 L, Lymphocytes % (Manual) 8 L, Myelocytes % 2 H, Nucleated RBCs # (Man) 9 H 01/30/20 18:32: Potassium 6.1 H, BUN 84 H, Creatinine 1.37 H, Calcium 7.5 L, AST 139 H, ALT 405 H, Alkaline Phosphatase 177 H, Albumin 2.7 L, Globulin 4.0 H, Albumin/Globulin Ratio 0.7 L 01/31/20 08:01: Sodium 131 L, Potassium 6.2 H, Carbon Dioxide 16 L, BUN 104 H, Creatinine 1.42 H, Calcium 7.7 L, AST 152 H, ALT 437 H, Alkaline Phosphatase 164 H, Albumin 2.5 L, Globulin 3.9 H, Albumin/Globulin Ratio 0.6 L - Physical Exam Vitals: Vital Signs (12 hours) Temp Pulse Resp Pulse Ox 01/31/20 16:00 99.4 F 24 H 01/31/20 14:00 24 H 01/31/20 13:11 95 01/31/20 12:00 99.4 F 31 H 01/31/20 10:15 89 01/31/20 10:00 20 01/31/20 08:00 99.0 F 25 H 71 L Weight Admit Weight 248 lb 9.6 oz Weight 248 lb 9.6 oz Most Recent Monitor Data Heart Rate from ECG 105 NIBP 148/73 NIBP BP-Mean 98 Respiration from ECG 24 SpO2 78 Physical Exam: The patient was seen and examined on the day of discharge. General: Patient had no heart or lung sounds, did not follow commands. She was pronounced at 17: 16 Plan - Discharge Medications Home Medications: Medication Instructions Recorded Confirmed Type Levothyroxine Sodium [Synthroid] 125 mcg PO DAILY 01/15/20 01/15/20 History Verapamil ER [Calan ER] 180 mg PO DAILY 01/15/20 01/15/20 History Omeprazole 20 mg PO DAILY 01/17/20 01/17/20 History Allergies: codeine Allergy (Verified 01/15/20 05:17) - Follow up Plan Referrals: [facility] [Primary Care Provider] - Disposition: HOME Quality - Care Measures CORE MEASURES:: N/A
--- NOTE | 2020-02-03 08:45 | PQF ---
CLINICAL DOCUMENTATION CLARIFICATION FORM: Dear :Marisa Elaine Date / Time: 02/03/2020 08:45 Please exercise your independent, professional judgment in responding to the clarification form. Clinical indicators are provided on the bottom of this form for your review Please check appropriate box(es) to clarify if the following diagnosis has been ruled in our ruled out: ATN [ ] Ruled in diagnosis [ ] Continue to treat [ ] Resolved [ ] Ruled out diagnosis [ ] Improving [ X ] Cannot rule out diagnosis [ ] Other diagnosis, please specify [ ] Unable to determine Physician Signature: Date/Time: For continuity of documentation, please document condition throughout progress notes and discharge summary. Thank You. To be completed by CDI/Coding staff for physician review: Present Clinical Indicators - Signs / Symptoms / Labs Results and Location in Medical Record [x] GAYATHRI likely secondary to ATN PN 01/31/20 [x] Edematous PN 01/31/20 [x] Renal dysfunction PN 01/27/20 [x] Worsening renal function secondary to the coronavirus infection PN 01/26/20 [x] BUN: 01/14=24 01/20=30 01/25=67 01/29=54 01/3034=597 Laboratory 01/14 [x] Creatinine: 01/14=0.86 01/25=1.53 01/29=1.37 01/30=1.42 Laboratory 01/14 [x] GFR: 01/14=80 01/27=87 01/20=45 Laboratory 01/14 Present Risk Factors Results and Location in Medical Record [x] 69 years old female HP 01/14/20 [x] Covid19 PNA HP 01/14/20 [x] Morbid Obesity PN 01/15/20 [x] GAYATHRI PN 01/31/20 [x] Hyperkalemia DS 01/31/20 [x] Hyponatremia DS 01/31/20 Present Treatments Results and Location in Medical Record [x] IVF MAR 01/25 [x] Monitor and replacement of electrolytes DS 01/31/20 [x] Monitor creatinine level Laboratory 01/15/20 [x] [x] [x] [x] [x] CDS/Curb Builder Signature: Susanne Ranjana Desir Phone #: [phone] Date/Time: 02/03/2020 This is a permanent part of the Medical Record [facility]
--- NOTE | 2020-02-03 08:49 | PQF ---
CLINICAL DOCUMENTATION CLARIFICATION FORM: Dear Dr: Marisa Elaine Date / Time: 02/03/2020 08:48 Please exercise your independent, professional judgment in responding to the clarification form. Clinical indicators are provided on the bottom of this form for your review Please check appropriate box(es): [ ] Sepsis due to Covid19 [ ] Severe sepsis due to Covid19 with associated acute organ dysfunction: [ ] Acute Respiratory Failure [ ] Acute Kidney injury [ ] Septic Shock [X ] Localized infection without sepsis [ ] Other diagnosis, please specify [ ] Unable to determine In addition, please specify: Present on Admission (POA): [X ] Yes [ ] No [ ] Unable to determine Physician Signature: Date/Time: For continuity of documentation, please document condition throughout progress notes and discharge summary. Thank You. To be completed by CDI/Coding staff for physician review: Present Clinical Indicators - Signs / Symptoms / Labs Results and Location in Medical Record [x] Temp= 99.5 Pulse=89 OX=862/87 Respi=24 Vital Signs 01/14/20 [x] Covid19 PNA with respiratory failure HP 01/14/20 [x] CT of chest: There is extensive groundglass opacity CT of chest 01/14/20 [x] GAYATHRI PN 01/31/20 [x] Hypotension PN 01/28/20 [x] WBC: 01/14=11.3 01/23=20.8 01/27=21.9 Laboratory 01/15/20 [x] Blood culture: no growth in 5 days Laboratory 01/14/20 Present Risk Factors Results and Location in Medical Record [x] 69 years old female HP 01/14/20 [x] Covid19 PNA HP 01/14/20 [x] Morbid Obesity PN 01/15/20 Present Treatments Results and Location in Medical Record [x] Azithromycin 500mg IV APR 30 [x] Rocephin 1gm IV APR 30 [x] Remdesivir 200mg IV APR 30 [x] IVF MAY 01 [x] ID consult Consult 01/13 [x] Pulmonology consult Consult 01/22 [x] Ventilation PN 01/31/20 CDS/Gravity Flow Irrigator Signature: Susanne Desir Phone #: [phone] Date/Time: 02/03/2020 This is a permanent part of the Medical Record [facility]
== END 2020-01-31 17:16 | disposition expired | DRG 207 ==
LOC: ERS 18:00 → 2SE 19:04 → 2SW 01-21 18:00 → CCU 01-23 04:27
PROVIDERS: ADMIT Internal Medicine; ATTEND Internal Medicine
PROC: XW033E5 Introduction of Remdesivir Anti-infective into Peripheral Vein, Percutaneous Approach, New Technology Group 5 (ICD-10-PCS; principal; 2020-01-15)
PROC: 5A1955Z Respiratory Ventilation, Greater than 96 Consecutive Hours (ICD-10-PCS; 2020-01-23)
PROC: 0BH17EZ Insertion of Endotracheal Airway into Trachea, Via Natural or Artificial Opening (ICD-10-PCS; 2020-01-23)
PROC: XW13325 Transfusion of Convalescent Plasma (Nonautologous) into Peripheral Vein, Percutaneous Approach, New Technology Group 5 (ICD-10-PCS; 2020-01-23)
PROC: 5A09357 Assistance with Respiratory Ventilation, Less than 24 Consecutive Hours, Continuous Positive Airway Pressure (ICD-10-PCS; 2020-01-23)
DX: U07.1 COVID-19 (principal); J12.89 Other viral pneumonia; Z66 Do not resuscitate; Z51.5 Encounter for palliative care; N17.0 Acute kidney failure with tubular necrosis; J80 Acute respiratory distress syndrome; E87.1 Hypo-osmolality and hyponatremia; Z68.41 Body mass index [BMI] 40.0-44.9, adult; I95.9 Hypotension, unspecified; I10 Essential (primary) hypertension; E66.01 Morbid (severe) obesity due to excess calories; E03.9 Hypothyroidism, unspecified; R74.01 Elevation of levels of liver transaminase levels; E87.5 Hyperkalemia; D53.9 Nutritional anemia, unspecified; Z88.5 Allergy status to narcotic agent; Z79.899 Other long term (current) drug therapy
CPT/HCPCS: 36415; 36416; 36430; 36600; 71045; 71275; 80048; 80053; 80076; 82728; 82805; 83615; 83735; 84100; 84439; 84443; 84481; 85007; 85025; 85027; 85379; 86140; 86850; 86900; 86901; 93005; 94002; 94003; 96365; 96375; 96376; C9113; J0282; J0360; J0456; J0692; J0696; J1100; J1650; J1940; J2060; J2248; J2270; J2405; J2704; J3010; J3475; J3490; J7050; J7070; P9017; Q9967